=== PATIENT | male | born 1950 | race Caucasian/White ===

== ENCOUNTER 2020-01-11 07:40 | Outpatient (CLI) | payer BC, SELFPAY ==
--- NOTE | ~2020-01-11 | CT_ITS ---
EXAMINATION: CT abdomen pelvis w con DATE: 01/11/2020 08:29 INDICATION: Persistent right lower quadrant and inguinal pain TECHNIQUE: Computed tomography (CT) of the abdomen and pelvis was performed with 100 cc Omnipaque 350 intravenous contrast. The dose-length product was 500.24 mGy-cm. Automated exposure control and iter ative reconstruction technique were employed COMPARISON: CT dated 05/05/2019 FINDINGS: Lung bases are unremarkable. Heart size normal. No significant pleural or pericardial effus ion. Small hiatal hernia. There is a 3.3 cm liver cyst. There are smaller subcentimeter hypodensities of the liver also likely cysts. The pancreas, adrenal glands and kidneys are unremarkable. No significant hydronephrosis. Nono bstructive bowel gas pattern. Normal appendix. Colonic diverticulosis without evidence for diverticul itis. No abnormal lymphadenopathy. Mild atherosclerosis. No free air or free fluid. No osteolytic or osteoblastic lesions. No acute osseous abnormality. IMPRESSION: 1. No acute abdominal abnormality. Reviewed, dictated and finalized at location A.
[2020-01-11 08:20] LABS: Estimated Glomerular Filt Rate 55
== END 2020-01-11 07:41 | disposition home or self-care (01) ==
PROVIDERS: PCP Family Medicine Adolescent Medicine; Visit Provider Family Medicine Adolescent Medicine
DX: R10.31 Right lower quadrant pain (principal)
CPT/HCPCS: 36415; 74177; Q9967

== ENCOUNTER 2020-11-17 03:08 | Emergency (ER) | payer BC, SELFPAY ==
[2020-11-17 03:12] VITALS: BP 167/97; PULSE 80; RESP 16; TEMP 36.9; O2SAT 100
[2020-11-17] MEDS: TETANUS,DIPHTHERIA,AC PERTUSSIS ADULT (0.5 ML) BOOSTRIX IM (03:31)
[2020-11-17] MEDS: AMOXICILLIN 500 MG CAPSULE 2000 MG PO (03:54)
--- NOTE | 2020-11-17 03:56 | ED.GENADULT ---
HPI - General Adult General Chief complaint: Fall Stated complaint: chin laceration Time Seen by Provider: 11/17/20 03:12 History of Present Illness HPI narrative: Patient is a 69-year-old male who presents the ER with laceration to his chin. Was getting a bed use restroom when he tripped on his feet and knocked his chin on a dresser. No loss of consciousness. No change in vision or hearing. No numbness or tingling. Has laceration to the underside of his chin that is 3 cm in length. Last tetanus shot 9 to 10 years ago. 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 Reports he gets amoxicillin for dental procedures. No dental injury. Related Data Home Medications Medication Instructions Recorded Confirmed aspirin 81 mg chewable tablet 81 mg PO DAILY 07/17/20 esomeprazole magnesium 40 mg 40 mg PO DAILY 07/17/20 capsule,delayed release lisinopril 10 mg tablet 10 mg PO DAILY 07/17/20 meclizine 25 mg tablet 25 mg PO TID 07/17/20 metoprolol succinate 25 mg 25 mg PO DAILY 07/17/20 tablet,extended release 24 hr milnacipran 25 mg tablet 25 mg PO BID 07/17/20 nisoldipine 17 mg tablet,extended 17 mg PO DAILY 07/17/20 release 24 hr Allergies Allergy/AdvReac Type Severity Reaction Status Date / Time clarithromycin AdvReac Unknown DIZZINESS Verified 05/10/19 10:01 AND MUSCLE WEAKNESS Review of Systems Integumentary/Breasts: Comments: Laceration to the chin and abrasion to the left arm. Neurologic: Denies dizziness, Denies syncope, Denies headache(s), Denies focal weakness and Denies numbness PMFSH Past Medical History Medical History (Updated 11/17/20 @ 04:04 by Kenji Amanda MD) Endocarditis GERD (gastroesophageal reflux disease) Hypertension Surgical History Surgical History (Updated 11/17/20 @ 04:01 by Kenji Amanda MD) Aortic valve replaced H/O aortic aneurysm repair Social History Social History Smoking status: Former smoker Exam Narrative: Exam Narrative: GENERAL: Well-appearing, well-nourished, and in no acute distress. HEAD: Normocephalic, atraumatic. ENT: Mucous membranes moist. No dental injury. Small contusion to the left lower lip laterally from biting it. 3 cm laceration that is deep to the underside of the chin. NECK: No midline tenderness of the cervical spine. SKIN: Warm, dry, no rash. Contusion abrasion left biceps region. NEURO: Alert and oriented x3. Course Course Emergency Course: Patient given tetanus shot and prophylactic antibiotics. Wound repaired. Patient got dizzy when going from laying to sitting. He has been given serum rest and some water. Discharge home. Vital Signs Vital signs: Vital Signs Temperature 98.4 F 11/17/20 03:12 Pulse Rate 80 11/17/20 03:12 Respiratory Rate 16 11/17/20 03:12 Blood Pressure 167/97 H 11/17/20 03:12 Pulse Oximetry 100 11/17/20 03:12 Temperature 98.4 F 11/17/20 03:12 Pulse Rate 87 11/17/20 04:00 Respiratory Rate 16 11/17/20 04:00 Blood Pressure 157/84 H 11/17/20 04:00 Pulse Oximetry 100 11/17/20 04:00 Procedures Laceration Laceration 1: Date: 11/17/20 Time: 03:56 Site: face Size (cm): 3 Description: linear and clean Depth: simple, single layer (deep subcutaneous involvement) Local Anesthetic: lidocaine 1% and with epi Amount of anesthesia used (mL): 4 Pre-repair: wound explored and irrigated ====== Skin Level ====== Skin layer closed with: prolene Size (cm): 5-0 Number of sutures: 6 Technique: simple, interrupted ====== Subcutaneous Layer ====== Subcutaneous layer closed with: vicryl Size: 4-0 Number of sutures: 2 Technique: simple, interrupted ====== Muscle Layer ====== ====== Tendon Layer ====== Medical Decision Making Vital Signs Vital Signs: Vital Signs Temperature
[2020-11-17 04:00] VITALS: BP 157/84; PULSE 87; RESP 16; O2SAT 100
--- NOTE | 2020-11-17 04:01 | PC.NURSE ---
2x2 dressing applied to chin and taped, left upper arm abrasion cleaned and dressed. pt carmen well
== END 2020-11-17 05:29 | disposition home or self-care (01) ==
PROVIDERS: Emergency Provider Emergency Medicine; PCP Family Medicine Adolescent Medicine
DX: S01.81XA Laceration without foreign body of other part of head, initial encounter (principal); K21.9 Gastro-esophageal reflux disease without esophagitis; I10 Essential (primary) hypertension; I38 Endocarditis, valve unspecified; Z23 Encounter for immunization; Z95.2 Presence of prosthetic heart valve; Z79.82 Long term (current) use of aspirin; W01.190A Fall on same level from slipping, tripping and stumbling with subsequent striking against furniture, initial encounter
CPT/HCPCS: 12052; 90471; 90715; 99283; A9270

== ENCOUNTER → 2021-06-23 15:36 | Outpatient (CLI) | payer BC, SELFPAY ==
--- NOTE | ~2021-06-23 | US_ITS ---
EXAMINATION: US thyroid DATE: 06/23/2021 15:53 INDICATION: Left thyroid nodule. TECHNIQUE: Multiple ultrasound images of the thyroid were obtained. COMPARISON: None. FINDINGS: The right thyroid lobe measures 6.0 x 1.9 x 1.6 cm. The left thyroid lobe measures 6.1 x 2.5 x 2.3 c m. In the left thyroid lobe, there is a 3.6 cm solid, hypoechoic, tgijh-soyc-srtu nodule with smooth margin without echogenic foci (TI-RADS TR4). In the right thyroid lobe, there is a 1.5 cm solid, hyp oechoic, snrva-rmnd-llpt nodule with smooth margin without echogenic foci (TR4). In the right thyroid lobe, there is a 6 mm solid, hypoechoic, ifyjb-wsgn-voon nodule with smooth margin without echogenic foci (TR4). IMPRESSION: 1. Multinodular goiter. Ultrasound-guided fine-needle aspiration of 2 nodules is recommended. Reviewed, dictated and finalized at location A. IMPRESSION: 1. Multinodular goiter. Ultrasound-guided fine-needle aspiration of 2 nodules i s recommended.
== END ==
PROVIDERS: PCP Family Medicine Adolescent Medicine; Visit Provider Family Medicine Adolescent Medicine
DX: R91.8 Other nonspecific abnormal finding of lung field (principal); E04.2 Nontoxic multinodular goiter
CPT/HCPCS: 76536

== ENCOUNTER 2021-07-01 12:37 | Outpatient (CLI) | payer BC, SELFPAY ==
--- NOTE | ~2021-07-01 | US_ITS ---
EXAMINATION: 1. US FNA w image guidance 2. US FNA additional DATE: 07/01/2021 14:26 INDICATION: Multinodular goiter. TECHNIQUE: The procedure and its benefits and risks were discussed with the patient. Risks specifically discusse d included bleeding. The patient verbalized understanding of the risks and agreed to proceed. The nec k was prepped and draped in the usual sterile manner. 1% lidocaine was used for local anesthesia. 5 passes were made with a 25G needle into the lesion in right thyroid lobe under ultrasound guidance. 5 passes were made with a 25-gauge needle into the lesion in left thyroid lobe under ultrasound rita nce. There were no immediate complications. The patient understood to call the ordering physician for results after a week and a half and verbalized that understanding. FINDINGS: Grayscale ultrasound images demonstrate needles advanced into a 15 mm nodule in right thyroid lobe fo r biopsy. Grayscale ultrasound images demonstrate needles advanced into a 3.6 cm nodule in left thyro id lobe. IMPRESSION: 1. Ultrasound-guided fine needle aspiration of a right thyroid nodule. 2. Ultrasound-guided fine-needle aspiration of a left thyroid nodule. Reviewed, dictated and finalized at location A. IMPRESSION: 1. Ultrasound-guided fine needle aspiration of a right thyroid nodule. 2. Ultrasound-guided fine-needle aspiration of a left thyroid nodule.
== END 2021-07-01 12:38 | disposition home or self-care (01) ==
PROVIDERS: PCP Family Medicine Adolescent Medicine; Visit Provider Family Medicine Adolescent Medicine
DX: E04.1 Nontoxic single thyroid nodule (principal)
CPT/HCPCS: 10005; 10006; 88173; 88305

== ENCOUNTER 2022-09-01 12:24 | Outpatient (CLI) | payer MEDICARE, SELFPAY ==
--- NOTE | ~2022-09-01 | US_ITS ---
Thyroid ultrasound. Clinical History: Left thyroid lobe nodule COMPARISON: 06/23/2021 Findings: Real-time sonography of the thyroid gland was performed. The right lobe measures 4.9 x 1.8 x 1.8 cm. The left lobe measures 5.4 x 2.5 x 2.6 cm. The isthmus is 3 mm in AP diameter. Right midpole mixed solid and cystic lesion measures 1.5 x 1.1 x 1.1 cm. Solid left thyroid lobe nodu le extending towards the isthmus measures 3.3 x 2.0 x 4.0 cm in size. Impression: Bilateral thyroid lobe nodules are probably without significant change given differences in imaging t echnique. The right-sided nodule demonstrates increased cystic components as compared to prior exam.. Reviewed, dictated and finalized at [facility]. [employer] CAT[employer]LL[employer] SP[employer]ER Impression: Bilateral thyroid lobe nodules are probably without significant change given di fferences in imaging technique. The right-sided nodule demonstrates increased c ystic components as compared to prior exam..
== END 2022-09-01 12:25 | disposition home or self-care (01) ==
PROVIDERS: PCP Family Medicine Adolescent Medicine; Visit Provider Family Medicine Adolescent Medicine
DX: E04.1 Nontoxic single thyroid nodule (principal)
CPT/HCPCS: 76536

== ENCOUNTER 2023-11-07 14:09 | Outpatient (CLI) | payer MEDICARE, SELFPAY ==
--- NOTE | ~2023-11-07 | CT_ITS ---
EXAMINATION: CT chest high resolution wo dc DATE: 11/07/2023 14:24 INDICATION: Solitary pulmonary nodule TECHNIQUE: Computed tomography (CT) of the chest was performed without intravenous contrast. The dose -length product (DLP) was 350.61 mGy-cm. Automated exposure control and iterative reconstruction tech nique were employed. COMPARISON: None FINDINGS: No suspicious left lower lobe nodule is identified. There is a 2 mm nodule of the right raheel g apex. There is mild dependent atelectasis. No pleural effusion or pneumothorax. Multinodular goiter is noted. There is bilateral gynecomastia. Changes of aortic valve surgery are noted. No pathologica lly enlarged thoracic lymph nodes are identified. The heart size is normal. There is moderate thoraci c spondylosis. IMPRESSION: 1. No suspicious left lower lobe lung nodule identified. Reviewed, dictated and finalized at location L. ET ASSEMBLY PRESS OPERATOR
--- NOTE | ~2023-11-07 | US_ITS ---
EXAMINATION: US thyroid DATE: 11/07/2023 14:39 INDICATION: Thyroid nodule. TECHNIQUE: Multiple ultrasound images of the thyroid were obtained. COMPARISON: Ultrasound 09/01/2022, 07/01/21 FINDINGS: The right thyroid lobe measures 5.5 x 2.1 x 1.6 cm. The left thyroid lobe measures 5.5 x 2.7 x 1.5 c m. In the right thyroid lobe, there is a 16 mm mixed cystic and solid, isoechoic, wider than tall no dule with smooth margin without echogenic foci (TI-RADS TR2), stable from 07/01/2021 when biopsy was benign. In the right thyroid lobe, there is a 4 mm nodule. In the left thyroid lobe, there is a 3.8 c m solid, hypoechoic, wider than tall nodule with smooth margin without echogenic foci (TR4), stable f rom 07/01/2021 when biopsy was benign. IMPRESSION: 1. Multinodular goiter, likely not clinically significant. No follow-up is needed. Reviewed, dictated and finalized at location A. IAN LANGUAGE PROFESSOR IMPRESSION: 1. Multinodular goiter, likely not clinically significant. No follow-up is need ed.
== END 2023-11-07 14:10 ==
LOC: MICIMG 14:10
PROVIDERS: PCP Family Medicine Adolescent Medicine; Visit Provider Family Medicine Adolescent Medicine
DX: R91.1 Solitary pulmonary nodule (principal); E04.2 Nontoxic multinodular goiter
CPT/HCPCS: 71250; 76536

== ENCOUNTER 2023-11-10 06:39 | Day surgery (SDC) | payer MEDICARE, SELFPAY ==
[2023-10-26 10:14] VITALS: BMI 24.4
[2023-10-28 09:30] VITALS: BMI 24.2
[2023-11-10 08:14] VITALS: BP 129/89; PULSE 73; RESP 14; TEMP 36.6; O2SAT 100; BMI 24.7
[2023-11-10] MEDS: LACTATED RINGERS 1,000 ML 150 ML IV CONT (08:18)
--- NOTE | 2023-11-10 08:30 | WPDANESEPPF ---
Anes - Initial Pre Proc Eval Procedure: Operation Date: 11/10/23 09:00 Proposed Procedures p Colonoscopy - Bret Mallory MD Date/Time: 11/10/23 08:30 Surgeon: Bret Mallory MD Pre Op Diagnosis: Family history of colon cancer Patient Data Age: 72 Gender: M Height: 1.83 m Weight: 82.8 kg Last Vital Signs Temp 36.6 C 11/10/23 08:14 Pulse 73 11/10/23 08:14 Resp 14 11/10/23 08:14 BP 129/89 11/10/23 08:14 Pulse Ox 100 11/10/23 08:14 O2 Del Method Room Air 11/10/23 08:14 Allergies Allergy/AdvReac Type Severity Reaction Status Date / Time clarithromycin AdvReac Unknown DIZZINESS Verified 11/10/23 08:12 AND MUSCLE WEAKNESS Home Medications Medication Instructions Recorded Confirmed Type aspirin 81 mg chewable tablet 81 mg PO BID 08/13/22 11/10/23 History tadalafil 20 mg tablet 20 mg PO DAILY PRN sexual activity 08/30/22 11/10/23 Rx #20 tabs esomeprazole magnesium 40 mg 40 mg PO BID #180 caps 06/01/23 11/10/23 Rx capsule,delayed release metoprolol succinate 25 mg 12.5 mg PO BID #90 tabs 06/01/23 11/10/23 Rx tablet,extended release 24 hr nisoldipine 17 mg tablet,extended 17 mg PO DAILY #90 tabs 06/01/23 11/10/23 Rx release 24 hr milnacipran 25 mg tablet (Savella) 25 mg PO BID #180 tabs 06/10/23 11/10/23 Rx valacyclovir 500 mg tablet 500 mg PO DAILY #90 tabs 08/29/23 11/10/23 Rx losartan 50 mg tablet 50 mg PO DAILY #90 tabs 10/26/23 11/10/23 Rx Patient hx anesthesia problems: other (urinary retention) Family hx anesthesia problems: none Results Review: All pre-operative results and documents have been reviewed as part of the pre-operative evaluation. [facility] Past Medical History Medical History Endocarditis GERD (gastroesophageal reflux disease) Hypertension Surgical History Surgical History Aortic valve replaced x2 H/O aortic aneurysm repair History of shoulder surgery left rotator cuff History of total knee replacement (04/2019) Bilateral Social History Social History Smoking status: Light tobacco smoker Tobacco type: cigars Alcohol intake: former Substance use: never Substance use type: does not use Do You Feel Safe in your Home?: Yes Lack of Transportation: No Lack of Food: Never True Current Housing: I Have Housing Concerned About Future Housing: No Difficulty Paying Gas/Electric Bills: No Difficulty Paying for Meds: No Currently Unemployed: No Education: Bachelor's Degree Difficulty w/ Childcare or Family Care: No Living arrangements: with family Occupation/Education: retired Gender identity (if verbalized by the patient): Male Spiritual care concerns: No Anes - Eval Final PreProcedure Day of Procedure 11/10/23 08:30 Patient weight: normal Heart: regular rate and rhythm Lungs: clear to auscultation Airway: Mallampati scale class II Neurological: alert and oriented Last oral intake: >/= 8 hours ASA classification: III Emergent: no Anesthetic plan: proceed Anesthesia type and monitoring: general GIVS and standard monitoring Results Review: All pre-operative results and documents have been reviewed as part of the pre-operative evaluation. Informed Consent: The patient's anesthetic plan and its attendant risks and benefits were discussed with the patient/family/POA. Questions were solicited and answers provided to the satisfaction of the patient/family/POA.
[2023-11-10] MEDS: AMPICILLIN 2 GM/NS 100 ML 2 GM/100 ML BAG IVPB (08:37)
--- NOTE | 2023-11-10 08:38 | PM.HPGS ---
History of Present Illness History of Present Illness Consent: Risks, benefits, and alternatives have been discussed and questions answered. Patient agrees to proceed with procedure. Chief complaint: Family history of colon cancer Narrative: Brannon Haywood is a 72 year old male presents for screening colonoscopy. Patient's current weight appetite and bowel movements are normal. Patient denies abdominal pain. He has had no bleeding. Family history is significant for 2 brothers that have had colon polyps. Review of Systems Review of Systems: Review of systems noncontributory. [facility] Past Medical History Medical History Endocarditis GERD (gastroesophageal reflux disease) Hypertension Surgical History Surgical History Aortic valve replaced x2 H/O aortic aneurysm repair History of shoulder surgery left rotator cuff History of total knee replacement (04/2019) Bilateral Social History Social History Smoking status: Light tobacco smoker Tobacco type: cigars Alcohol intake: former Substance use: never Substance use type: does not use Do You Feel Safe in your Home?: Yes Lack of Transportation: No Lack of Food: Never True Current Housing: I Have Housing Concerned About Future Housing: No Difficulty Paying Gas/Electric Bills: No Difficulty Paying for Meds: No Currently Unemployed: No Education: Bachelor's Degree Difficulty w/ Childcare or Family Care: No Living arrangements: with family Occupation/Education: retired Gender identity (if verbalized by the patient): Male Spiritual care concerns: No Meds Home Medications and Allergies Home Medications Medication Instructions Recorded Confirmed Type aspirin 81 mg chewable tablet 81 mg PO BID 08/13/22 11/10/23 History tadalafil 20 mg tablet 20 mg PO DAILY PRN sexual activity 08/30/22 11/10/23 Rx #20 tabs esomeprazole magnesium 40 mg 40 mg PO BID #180 caps 06/01/23 11/10/23 Rx capsule,delayed release metoprolol succinate 25 mg 12.5 mg PO BID #90 tabs 06/01/23 11/10/23 Rx tablet,extended release 24 hr nisoldipine 17 mg tablet,extended 17 mg PO DAILY #90 tabs 06/01/23 11/10/23 Rx release 24 hr milnacipran 25 mg tablet (Savella) 25 mg PO BID #180 tabs 06/10/23 11/10/23 Rx valacyclovir 500 mg tablet 500 mg PO DAILY #90 tabs 08/29/23 11/10/23 Rx losartan 50 mg tablet 50 mg PO DAILY #90 tabs 10/26/23 11/10/23 Rx Allergies Allergy/AdvReac Type Severity Reaction Status Date / Time clarithromycin AdvReac Unknown DIZZINESS Verified 11/10/23 08:12 AND MUSCLE WEAKNESS Vital Signs Vital Signs - 24 hr 11/10/23 08:14 Temperature 98 F Pulse Rate 73 Respiratory Rate 14 Blood Pressure 129/89 Pulse Oximetry 100 Oxygen Delivery Room Air Exam Narrative: Physical exam reveals patient to be alert. Vital signs stable. HEENT exam is unremarkable. Patient is anicteric. Lungs are clear to auscultation and percussion. His without murmur or extra sounds. Abdomen bowel sounds are present soft nontender with no organomegaly. Digital external rectal exam normal per Assessment and Plan Assessment and plan (1) Family history of colonic polyps: Code(s): Z83.719 - Family history of colon polyps, unspecified Status: Acute Assessment and Plan: 2 brothers have had colon polyps. Plan for surveillance colonoscopy at 5 year intervals
[2023-11-10] MEDS: GENTAMICIN 80MG/SOD CHL 50 ML 80 MG/50 ML BAG 100 MG IVPB (09:18)
[2023-11-10 09:39] VITALS: BP 104/71; PULSE 61; RESP 14; O2SAT 94
--- NOTE | 2023-11-10 09:42 | WPDANESPN ---
Anes - Prog Note Post-Op Date/Time: 11/10/23 09:42 Cardiovascular status: normal Respiratory status: normal Airway patency: baseline Mental status: baseline Post-Op hydration status: normal Vital Signs: Last Vital Signs Temp 36.6 C 11/10/23 08:14 Pulse 73 11/10/23 08:14 Resp 14 11/10/23 08:14 BP 129/89 11/10/23 08:14 Pulse Ox 100 11/10/23 08:14 O2 Del Method Room Air 11/10/23 08:14 Pain Score (VAS): 0 I/O: Intake & Output 11/09/23 11/10/23 11/10/23 23:59 07:59 15:59 Intake Total 400 Balance 400 Patient Feedback: Patient satisfied with anesthetic care.
[2023-11-10 09:49] VITALS: BP 91/70; PULSE 62; RESP 16; O2SAT 96
[2023-11-10 09:59] VITALS: BP 106/79; PULSE 65; RESP 15; O2SAT 98
[2023-11-10 10:09] VITALS: BP 143/86; PULSE 61; RESP 15; O2SAT 98
== END 2023-11-10 10:17 | disposition home or self-care (01) ==
PROVIDERS: PCP Family Medicine Adolescent Medicine; Visit Provider Internal Medicine Gastroenterology
PROC: 0DJD8ZZ Inspection of Lower Intestinal Tract, Via Natural or Artificial Opening Endoscopic (ICD-10-PCS; CPT 45378; principal; 2023-11-10 09:00)
DX: Z83.718 Family history of other colon polyps (principal); K64.8 Other hemorrhoids
CPT/HCPCS: G0121; G0105

== ENCOUNTER 2023-12-08 10:34 | Outpatient (CLI) | payer MEDICARE, SELFPAY ==
--- NOTE | ~2023-12-08 | CT_ITS ---
EXAMINATION: CT abdomen pelvis wo con DATE: 12/08/2023 10:56 INDICATION: Generalized abdominal pain. TECHNIQUE: Computed tomography (CT) of the abdomen and pelvis was performed without intravenous contr ast. Automated exposure control and iterative reconstruction technique were employed. The dose-length product was 727.53 mGy-cm. COMPARISON: CT abdomen and pelvis 01/11/2020 FINDINGS: The visualized portions of the lung bases demonstrate mild atelectasis. No pleural effusion . The heart size is normal. No pericardial effusion. There is a small sliding hiatal hernia. There ar e cysts in the liver measuring up to 7 mm. The gallbladder, spleen, pancreas, adrenal glands, and kid neys are normal. There is no urolithiasis. There is a right inguinal hernia containing fat. There is diverticulosis of the colon without evidence of diverticulitis. The appendix is fluid-filled and dila maria de jesus to 2.7 cm with surrounding fat stranding, consistent with appendicitis. There is calcified athero sclerosis of the aorta and many of the other arteries. There are no pathologically enlarged lymph nod es. There is no free intraperitoneal fluid. There is severe lumbar spondylosis. Lumbar levocurvature is noted. IMPRESSION: 1. Acute appendicitis. I called this result to Dr. Anthony. Reviewed, dictated and finalized at location A.
== END 2023-12-08 10:35 ==
LOC: GOSHIMG 10:36
PROVIDERS: PCP Family Medicine Adolescent Medicine; Visit Provider Family Medicine Adolescent Medicine
DX: K35.80 Unspecified acute appendicitis (principal)
CPT/HCPCS: 74176

== ENCOUNTER 2023-12-08 11:31 | Inpatient (IN) | payer MEDICARE, SELFPAY ==
[2023-12-08] VITALS (12 sets, daily range): BP systolic 109–140; BP diastolic 71–91; PULSE 75–87; RESP 16–23; TEMP 36.2–37.2; O2SAT 94–100; BMI 28.0
--- NOTE | 2023-12-08 11:41 | ED.ABDPAIN ---
HPI - Abdominal Pain General Chief Complaint: Abdominal Pain <SHELDON Rodriguez Last Filed: 12/08/23 12:40> Stated Complaint: appendicitis <SHELDON Rodriguez Last Filed: 12/08/23 12:40> Time Seen by Provider: 12/08/23 11:40 <Mely Heaton PA-C - Last Filed: 12/08/23 12:40> History of Present Illness HPI narrative: 73-year-old male with history of GERD, hyperlipidemia, hypertension presents to the emergency department for acute appendicitis. Patient reports he has had generalized abdominal pain for the past 2 weeks. States it is worse when he goes over curb while in the car. He saw his PCP and was prescribed Cipro without relief. States his PCP ordered a outpatient abdomen and pelvis CT scan today which showed acute appendicitis. Patient was contacted by his PCP and was advised to come to the ER immediately. He states the pain is all over his abdomen and worse in the lower quadrants. he reports associated nausea and decreased appetite, no emesis. denies fever, dysuria, diarrhea. Prior abdominal surgeries include a inguinal hernia repair. <SHELDON Rodriguez Last Filed: 12/08/23 12:40> Related Data Home Medications: Home Medications Medication Instructions Recorded Confirmed aspirin 81 mg chewable tablet 81 mg PO BID 08/13/22 12/08/23 <SHELDON Rodriguez Last Filed: 12/08/23 12:40> Allergies/Adverse Reactions: Allergies Allergy/AdvReac Type Severity Reaction Status Date / Time clarithromycin AdvReac Unknown DIZZINESS Verified 12/08/23 11:51 AND MUSCLE WEAKNESS <SHELDON Rodriguez Last Filed: 12/08/23 12:40> Review of Systems Review of Systems: CONSTITUTIONAL: Denies fever, chills, or sweats. EYES: Denies visual changes, redness, or discharge. ENT: Denies rhinorrhea, congestion, sore throat, or otalgia. CARDIOVASCULAR: Denies chest pain, palpitations, or edema. RESPIRATORY: Denies cough or dyspnea. GASTROINTESTINAL: See HPI GENITOURINARY: Denies dysuria or hematuria. SKIN: Denies rash or itching. MUSCULOSKELETAL: Denies back pain, joint pain, or myalgia. NEUROLOGIC: Denies headache, numbness, or weakness. PSYCHIATRIC: Denies anxiety or depression. <Mely Heaton PA-C - Last Filed: 12/08/23 12:40> [facility] Past Medical History Medical History: Medical History Endocarditis GERD (gastroesophageal reflux disease) Hypertension <Mely Heaton PA-C - Last Filed: 12/08/23 12:40> Surgical History Surgical History: Surgical History Aortic valve replaced x2 H/O aortic aneurysm repair ascending aortic aneurysm repair in 2009 History of right inguinal hernia repair Open with mesh History of shoulder surgery left rotator cuff History of total knee replacement (04/2019) Bilateral <Mely Heaton PA-C - Last Filed: 12/08/23 12:40> Social History Social History: Social History Smoking status: Current every day smoker Tobacco type: cigars Second hand tobacco smoke exposure: Yes Additional smoking assessment comments: Pt smokes 1-2 cigars/day. Alcohol intake: never Substance use: former Substance use type: marijuana Last use: 40 years ago Do You Feel Safe in your Home?: Yes Lack of Transportation: No Lack of Food: Never True Current Housing: I Have Housing Concerned About Future Housing: No Difficulty Paying Gas/Electric Bills: No Difficulty Paying for Meds: No Currently Unemployed: No Education: Bachelor's Degree Difficulty w/ Childcare or Family Care: No Living arrangements: with family Occupation/Education: retired Gender identity (if verbalized by the patient): Male Spiritual care concerns: No <Mely Heaton PA-C - Last Filed: 12/08/23 12:40> Exam Narrative:
[2023-12-08 12:07] LABS: Basophils Absolute Auto 0.1 K/mm3 (0.0-0.1); Basophils Percent Auto 0.5 % (0.2-1.2); Eosinophils Absolute Auto 0.1 K/mm3 (0-0.3); Eosinophils Percent Auto 0.4 % (0-4.4); Hematocrit 47.9 % (42.0-52.0); Hemoglobin 15.5 g/dL (14.0-18.0); Immature Granulocyte Percent A 0.6 % (0-0.5); Lymphocytes Absolute Auto 1.46 K/mm3 (0.9-3.2); Lymphocytes Percent Auto 9.5 % (18.3-44.2); Mean Corpuscular HGB Conc 32.4 g/dl (32-36); Mean Corpuscular Hemoglobin 31.4 pg (26-34); Mean Platelet Volume 9.9 fl (7.4-10.4); Monocytes Percent Auto 13.2 % (2.6-8.5); Neutrophils Absolute Auto 11.7 K/mm3 (1.3-6.7); Neutrophils Percent Auto 75.8 % (45.5-73.1); Platelet Count Result 328 k/mm3 (150-375); Red Blood Count 4.94 M/mm3 (4.6-6.20); Red Cell Distribution Width 13.5 % (11.5-14.5); White Blood Count 15.4 K/mm3 (4.5-10.0)
[2023-12-08] MEDS: SODIUM CHLORIDE 0.9% IV 1,000 ML 999 ML IV CONT (12:09)
[2023-12-08 12:13] LABS: Alanine Aminotransferase 24 U/L (6-50); Albumin Level 4.5 g/dL (3.5-5.1); Alkaline Phosphatase 92 U/L (38-126); Anion Gap 8 mmol/L (4-12); Aspartate Amino Transferase 28 U/L (17-59); Bilirubin,Total 0.8 mg/dL (0.2-1.3); Blood Urea Nitrogen 22 mg/dL (9-20); Calcium 9.9 mg/dL (8.4-10.2); Carbon Dioxide 27 mmol/L (22-30); Chloride 102 mmol/L (98-107); Estimated CRCL calculation 51 ml/min; Estimated Glomerular Filt Rate 54; Glucose 97 mg/dL (65-110); Lipase 54 U/L (23-300); Potassium 4.1 mmol/L (3.4-5.0); Sodium 137 mmol/L (137-145)
[2023-12-08 12:17] LABS: INR 1.1; Prothrombin Time 14.7 Seconds (11.1-14.7)
[2023-12-08 12:19] LABS: Partial Thromboplastin Time 38.9 Seconds (22.3-36.8)
--- NOTE | 2023-12-08 12:50 | PM.IMHP ---
H&P: HPI History of Present Illness Date/Time: 12/08/23 12:50 Chief Complaint: Abdominal pain Narrative: This is a 73-year-old man who was directed to go to the ER after findings of acute appendicitis on an outpatient CT scan. He had a colonoscopy by Dr. Mallory on 11/10/2023 with only having findings of uncomplicated internal hemorrhoids. Not long after having the colonoscopy, he began to notice some mild lower abdominal pain. He reports sharp pain across the lower abdomen, which he did not notice was worse on one side more than the other. He believes his pain started about 10 days ago. His pain remained constant and was aggravated by certain movements. He spoke with the GI doctor and then his PCP regarding this pain. His PCP prescribed him ciprofloxacin, which he began taking a few days ago. He did not notice much improvement with the antibiotic and scheduled an appointment with his PCP for evaluation today. He ordered a stat CT scan of the abdomen and pelvis. This showed acute appendicitis with no evidence of perforation or abscess. The appendix measured up to 2.7 cm with surrounding inflammatory stranding. He was called and instructed to go directly to the ER. Labs were drawn in [place] [id number] with a left shift. Our service was contacted by the ED provider. He is now seen in the ER. He denies ever having this pain in the past. Denies any fever, chills, nausea or vomiting. He has had multiple surgeries in the past and reports postoperative urinary retention after every surgery and has to have an indwelling Logan catheter for short time postop. He follows with Dr. Gan for urology and has had a TURP many years ago. Even after the TURP, he had postoperative urinary retention following his bilateral knee replacement about 5 years ago. He also reports a history of aortic stenosis with prostatic aortic valve replacement in 1996. 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 He then had an aortic aneurysm repair and they also did a second aortic valve replacement during that surgery. No other cardiac issues since that surgery. He is not on any anticoagulation. He reports having multiple echocardiograms since his surgeries and the most recent without any evidence of aortic stenosis or significant abnormalities. 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 ascending aortic aneurysm measuring over 6 cm requiring aortic aneurysm repair and another aortic valve replacement Respiratory: Respiratory: Reports no additional respiratory complaints, Denies cough and Denies dyspnea Gastrointestinal: Gastrointestinal: Reports as per HPI, Reports no additional gastrointestinal complaints, Reports abdominal pain, Denies bloating, Denies constipation, Denies diarrhea, Denies nausea and Denies vomiting Genitourinary: Genitourinary: Reports no additional male genitourinary complaints and Denies dysuria Musculoskeletal: Musculoskeletal: Reports no additional musculoskeletal complaints, Denies abnormal gait and Denies joint swelling Integumentary/Breasts: Skin/Breast: Reports system reviewed and no additional complaints, except as docu Neurologic: Reports system reviewed and no additional complaints, except as documented, Denies headache(s), Denies focal
[2023-12-08] MEDS: LACTATED RINGERS 1,000 ML 30 ML IV CONT ×2 (13:00→16:15)
[2023-12-08] MEDS: PIPERACILLN/TAZ 3.375GM/NS50ML 3.375 GM/50 ML BAG IVPB ×2 (13:26→18:59)
--- NOTE | 2023-12-08 13:56 | WPDHPUPDATE1 ---
History and Physical Update Update Date/Time: 12/08/23 13:56 History and Physical has been reviewed, including an updated exam of the patient. There are NO changes in the patient's condition. Risks, benefits, and alternatives have been discussed and questions answered. Patient agrees to proceed with procedure.
--- NOTE | 2023-12-08 14:00 | P.PNAN_ITS ---
Anes - Eval Final PreProcedure Day of Procedure 12/08/23 14:00 Patient weight: normal Heart: regular rate and rhythm Lungs: clear to auscultation Airway: Mallampati scale class II Neurological: alert and oriented Last oral intake: >/= 8 hours ASA classification: III Emergent: yes Anesthetic plan: proceed Anesthesia type and monitoring: general ETT and standard monitoring Results Review: All pre-operative results and documents have been reviewed as part of the pre- operative evaluation. Informed Consent: The patient's anesthetic plan and its attendant risks and benefits were discussed with the patient/family/POA. Questions were solicited and answers provided to the satisfaction of the patient/family/POA.
[2023-12-08] MEDS: BUPIVACAINE/EPINEPHRINE 0.5% 30 ML VIAL INFILTRATE (14:58)
--- NOTE | 2023-12-08 18:13 | ADMGEN ---
This patient, Brannon Haywood, was admitted to [facility] Surg Room 302-01. Patient/family oriented to hospital policies and general routines including ID bracelet, bed and alarms, visiting hours, pain management, procedures, bathroom and other care routines, personal items, smoking policy, room service/diet, and visiting hours. Information on how to activate the Rapid Response Team has been discussed. Patient/Family are encouraged to report perceived risks to care and to ask questions if they do not understand what they are told or what they should do.
[2023-12-08] MEDS: SODIUM CHLORIDE 0.9% IV 100 ML (18:59)
[2023-12-08] MEDS: IBUPROFEN IV 800 MG/200 ML 800 MG/200 ML BAG 400 MG IVPB ×2 (19:00→23:55)
[2023-12-08] MEDS: LACTATED RINGERS 1,000 ML 125 ML IV CONT (19:00)
[2023-12-08] MEDS: PANTOPRAZOLE 40 MG TABLET PO (20:05)
--- NOTE | 2023-12-08 21:09 | PC.NURSE ---
pt walked to BR to void, and reports that he did successfully urinate around 21:00 this evening
--- NOTE | 2023-12-08 21:11 | W.PM.PROC2 ---
Procedure Note - Detailed Date of Procedure 12/08/23 Pre-op Diagnosis Acute appendicitis Post-op Diagnosis Other (Ruptured appendicitis with abscess and generalized peritonitis) Procedure Performed Laparoscopic appendectomy Surgeon Andrew Akins MD [employer] Shraddha Fay [facility] Anesthesia General and Local Indications Patient has had persistent and worsening right lower quadrant abdominal pain for 10-14 days. Pain hurts with any movement. He saw Dr. Anthony, his primary care physician, to day and a CT scan of the abdomen and pelvis was done. This showed acute appendicitis with the appendix quite large at 2.7 cm but no evidence of abscess or perforation. Patient went to the emergency room [place] [id number]. He is taken to surgery now for laparoscopic appendectomy. Findings The appendix was ruptured and in fact disintegrated after about 3 cm from its origin. There was an abscess associated with the acute appendicitis and the appendix was retrocecal, possibly an explanation for why his pain went on as long as it did. The distal appendix was involved in a severe inflammatory mass associated with the abscess. Was very difficult to identify tissue planes but eventually the entire appendix was removed. No evidence of malignancy could be seen but with the severe inflammation and somewhat raw tissue, this is still possible. As noted the surgery was extremely difficult. A 4th port had to be placed to better expose the ruptured appendix and inflammatory mass with abscess. The proximal ascending colon had to be mobilized to visualize the distal ruptured appendix with abscess. There was at least 5 times more bleeding than usual. Blood loss was approximately 150 cc. The operation itself took nearly 2 hours with the difficult dissection, extra ports, lack of tissue planes and oozing of blood associated with the hypervascular inflammatory process. This is at least 3 times longer than usual for appendicitis. A drain had to be placed postoperatively. There were several well formed clots from the bleeding that could not readily be suctioned away and had to be placed in an Endo-Catch bag to retrieve them from the abdominal cavity. Patient has had to be admitted following the surgery for continued IV antibiotics and management of his peritonitis. Description of Procedure Patient was taken to surgery and induced into general anesthesia. The abdomen is prepped and draped. Trocars were placed in the usual fashion along the left side of the abdomen. These were applied Medical optical trocars. Local was infiltrated prior to placement of each of the trocars. Once the trocars were in place the patient was placed in Trendelenburg in the right-side was elevated. The cecum and proximal ascending colon were easily seen as they were full of air and lying in or actually across the midline of the lower abdomen. After carefully dissecting the cecum and trying to mobilize it, I was able to see the appendiceal origin and notice that the appendix was proceeding under the cecum or retrocecal and the dense inflammatory process was associated with that. I tried to lateral and distally moved this and found a fairly large abscess in this area. Dark brown purulent fluid was noted. All this was suctioned away until there was no more. I continued to try to mobilize the appendix from the retroperitoneum and further expose the inflammatory process. Visualization was not adequate and so I placed a right upper quadrant 5 mm port to assist with this. We alternated between this port and the left upper quadrant port for camera position throughout the rest of the surgery. Dissection was continued and eventually I found the proximal appendix as I was able to mobilize the cecum from the retroperitoneum. There was then some tenuous connections of the proximal appendix to the dense inflammatory mass associated with the abscess of the more distal appendix. As I tried to diss
[2023-12-08] MEDS: ARTIFICIAL TEARS OPHTH SOLN 15 ML BOTTLE 1 DROP EACH EYE (22:12)
[2023-12-08] MEDS: PROPARACAINE HCL 0.5% 15 ML OPHTH SOLN 1 DROP EACH EYE (22:12)
[2023-12-09] MEDS: PIPERACILLN/TAZ 3.375GM/NS50ML 3.375 GM/50 ML BAG IVPB ×3 (00:54→17:14)
[2023-12-09] MEDS: oxyCODONE/ACETAMINOPHEN (*CRX) 10-325 MG TABLET 1 TAB PO (01:46)
[2023-12-09] MEDS: IBUPROFEN IV 800 MG/200 ML 800 MG/200 ML BAG 400 MG IVPB ×2 (05:39→12:02)
[2023-12-09 06:00] VITALS: BP 128/80; PULSE 76; RESP 18; TEMP 36.6; O2SAT 95
[2023-12-09 07:00] LABS: Hemoglobin 12.8 g/dL (14.0-18.0); Mean Corpuscular HGB Conc 32.8 g/dl (32-36); Mean Corpuscular Hemoglobin 31.5 pg (26-34); Mean Corpuscular Volume 96.1 fl (80-100); Mean Platelet Volume 10.3 fl (7.4-10.4); Platelet Count Result 247 k/mm3 (150-375); Red Blood Count 4.06 M/mm3 (4.6-6.20); Red Cell Distribution Width 13.5 % (11.5-14.5); White Blood Count 13.3 K/mm3 (4.5-10.0)
--- NOTE | 2023-12-09 07:27 | P.PNAN_ITS ---
Anes - Prog Note Post-Op Date/Time: 12/09/23 07:27 Cardiovascular status: normal Respiratory status: normal Airway patency: baseline Mental status: baseline Post-Op hydration status: normal Vital Signs: Last Vital Signs Temp 36.6 C 12/09/23 06:00 Pulse 76 12/09/23 06:00 Resp 18 12/09/23 06:00 BP 128/80 12/09/23 06:00 Pulse Ox 95 12/09/23 06:00 O2 Del Method Room Air 12/08/23 20:00 O2 Flow Rate 8 12/08/23 17:00 Pain Score (VAS): 0 I/O: Intake & Output 12/08/23 12/08/23 12/09/23 15:59 23:59 07:59 Intake Total 50 650 700 Output Total 30 48 Balance 50 620 652 Laboratory Tests 12/09/23 05:33 12/08/23 12/09/23 11:50 05:33 WBC 15.4 H 13.3 H RBC 4.94 4.06 L Hgb 15.5 12.8 L Hct 47.9 39.0 L MCV 97.0 96.1 MCH 31.4 31.5 MCHC 32.4 32.8 RDW 13.5 13.5 Plt Count 328 247 MPV 9.9 10.3 Immature Gran % (Auto) 0.6 H Neut % (Auto) 75.8 H Lymph % (Auto) 9.5 L [place] % (Auto) 13.2 H Eos % (Auto) 0.4 Baso % (Auto) 0.5 Lymph # (Auto) 1.46 [place] # (Auto) 2.0 H Eos # (Auto) 0.1 Baso # (Auto) 0.1 Abs Immat Gran (auto) 0.10 H Absolute Neuts (auto) 11.7 H Absolute Nucleated RBC 0.000 Nucleated RBC % 0.0 PT 14.7 INR 1.1 APTT 38.9 H Sodium 137 Pending Potassium 4.1 Pending Chloride 102 Pending Carbon Dioxide 27 Pending Anion Gap 8 Pending BUN 22 H Pending Creatinine 1.30 Pending Estim Creat Clear Calc 51 Pending Estimated GFR 54 L Pending Glucose 97 Pending Calcium 9.9 Pending Total Bilirubin 0.8 AST 28 ALT 24 Alkaline Phosphatase 92 Total Protein 9.0 H Albumin 4.5 Lipase 54 Blood Type O Positive Antibody Screen Negative Post-procedural complaints: none Patient Feedback: Patient satisfied with anesthetic care.
[2023-12-09 07:34] LABS: Anion Gap 7 mmol/L (4-12); Blood Urea Nitrogen 15 mg/dL (9-20); Calcium 8.8 mg/dL (8.4-10.2); Carbon Dioxide 24 mmol/L (22-30); Chloride 105 mmol/L (98-107); Estimated CRCL calculation 66 ml/min; Estimated Glomerular Filt Rate > 60; Glucose 132 mg/dL (65-110); Potassium 3.9 mmol/L (3.4-5.0); Sodium 136 mmol/L (137-145)
--- NOTE | 2023-12-09 10:01 | PC.NURSE ---
Addendum entered by Mckenzie Marc RN 12/09/23 18:38: Pt has been up and ambulating the halls. Pt is A&O4. Pt participates and contributes in plan of care. Pt diet was advanced and pt is tolerating well. Pt has been monitored for any changes in status. Will continue to monitor pt. Original Note: Pt is A&O 4 male who participates and contributes in plan of care. Pt took home medication this morning. Pt educated that he is not supposed to take home medication and to wait until medication is brought in by staff. Pt agreeable. Will continue to monitor pt.
[2023-12-09 14:00] VITALS: BP 103/68; PULSE 73; RESP 16; TEMP 36.5; O2SAT 94
--- NOTE | 2023-12-09 15:13 | PM.PNGS ---
Progress Note: A&P Assessment and Plan (1) Acute appendicitis with generalized peritonitis and gangrene: Qualifiers: Appendicitis perforation presence: with perforation Appendicitis abscess presence: with abscess Qualified Code(s): K35.211 - Acute appendicitis with generalized peritonitis, with perforation and abscess Code(s): K35.209 - Acute appendicitis with generalized peritonitis, without abscess, unspecified as to perforation; K35.891 - Other acute appendicitis without perforation, with gangrene Status: Acute Assessment and Plan: Doing well postop day 1. Will advance to soft diet and increased ambulation. Recheck labs and exam again in the morning. Advised that he will probably be here until at least Tuesday. No signs of adynamic ileus. Continue IV antibiotics for ruptured appendicitis with abscess gangrene and generalized peritonitis Subjective Subjective Date/Time Seen: 12/09/23 15:13 Post Op day: 1 Patient reports: feels better, pain is less, tolerating liquids well, flatus, no bowel movement and afebrile Exam Const: General: comfortable and no acute distress Orientation/consciousness: patient oriented x3 GI: Inspection: non-distended, incision (Dry and healing, PAMELA serosanguineous) and scaphoid GI Palp: Yes Soft to palpation, Yes Tenderness to palpation present (GI) (Less than expected), No Guarding due to palpation present (GI) and No Rebound tenderness present Neuro: General: patient oriented x3 and no focal motor deficits Extrem: General: no calf tenderness and no edema Psych: Affect: normal affect Insight: Good insight present (Psych) Judgement: Good judgement present (Psych) Objective Data Vital Signs Vital Signs: Vital Signs - 24 hr 12/08/23 16:15 12/08/23 16:30 12/08/23 16:45 Temperature 36.4 C Pulse Rate 77 76 77 Respiratory Rate 16 18 18 Blood Pressure 109/91 H 127/71 140/78 Pulse Oximetry 98 100 100 Oxygen Delivery Simple Face Mask Simple Face Mask Simple Face Mask Oxygen Flow Rate 8 8 8 12/08/23 17:00 12/08/23 17:15 12/08/23 17:30 Temperature Pulse Rate 75 78 77 Respiratory Rate 16 19 20 Blood Pressure 138/84 131/83 135/83 Pulse Oximetry 100 97 94 Oxygen Delivery Simple Face Mask Room Air Room Air Oxygen Flow Rate 8 12/08/23 17:45 12/08/23 18:57 12/08/23 22:43 Temperature 37.1 C 36.2 C L Pulse Rate 79 80 85 Respiratory Rate 19 18 18 Blood Pressure 132/83 140/86 126/85 Pulse Oximetry 95 95 96 Oxygen Delivery Room Air Oxygen Flow Rate 12/08/23 20:00 12/09/23 06:00 12/09/23 09:47 Temperature 36.6 C Pulse Rate 76 Respiratory Rate 18 Blood Pressure 128/80 Pulse Oximetry 95 Oxygen Delivery Room Air Room Air Oxygen Flow Rate 12/09/23 14:00 Temperature 36.5 C Pulse Rate 73 Respiratory Rate 16 Blood Pressure 103/68 Pulse Oximetry 94 Oxygen Delivery Oxygen Flow Rate Intake/Output Intake/Output: Intake & Output 12/06/23 12/07/23 12/08/23 12/09/23 23:59 23:59 23:59 23:59 Intake Total 700 1300 Output Total 30 73 Balance 670 1227 Meds/Results Medications: Active Medications Generic Name Dose Route Start Last Admin Trade Name Freq PRN Reason Stop Dose Admin Acetaminophen 500 mg 12/08/23 17:52 Acetaminophen 500 Mg Tablet PO Q6H PRN Mild Pain (1-3) or Fever Artificial Tears 1 drop 12/08/23 21:55 12/08/23 22:12 Artificial Tears Ophth Soln 15 Ml Bottle EACH EYE 1 drop Q2H PRN Administration Dry Eye(s) Enoxaparin Sodium 40 mg 12/09/23 09:00 12/09/23 12:25 Enoxaparin 40 Mg/0.4 Ml Syringe SUB-Q Not Given DAILY XU Lactated Ringer's 1,000 mls @ 80 mls/hr 12/08/23 17:52 12/08/23 19:00 Lr - Lactated Ringers Iv IV CONT 125 mls/hr .[id number] XU Administration Piperacillin/Tazobactam/Dextrose 3.375 gm in 50 mls @ 100 mls/hr 12/08/23 18:00 12/09/23 12:02 Zosyn 3.375 Gm/Ns 50 Ml IVPB 100 mls/hr Q6HR XU Administration Ibuprof
[2023-12-09 15:19] VITALS: BP 107/66; PULSE 74; RESP 18; TEMP 36.1; O2SAT 97
[2023-12-09 17:14] VITALS: PULSE 76
[2023-12-09] MEDS: METOPROLOL SUCCINATE EXT REL 12.5 MG TABCR PO (17:14)
[2023-12-09] MEDS: PANTOPRAZOLE 40 MG TABLET PO (21:06)
[2023-12-09] MEDS: ACETAMINOPHEN 500 MG TABLET PO (21:09)
[2023-12-09 21:44] VITALS: BP 106/67; PULSE 74; RESP 20; TEMP 36.8; O2SAT 97
[2023-12-10] VITALS (7 sets, daily range): BP systolic 126–135; BP diastolic 60–82; PULSE 75–82; RESP 16–18; TEMP 36.4–36.7; O2SAT 95–98
[2023-12-10] MEDS: PIPERACILLN/TAZ 3.375GM/NS50ML 3.375 GM/50 ML BAG IVPB ×4 (00:30→17:04)
[2023-12-10] MEDS: oxyCODONE/ACETAMINOPHEN (*CRX) 5-325 MG TABLET 1 TABLET PO ×3 (06:07→20:58)
[2023-12-10 07:03] LABS: Hematocrit 37.7 % (42.0-52.0); Hemoglobin 12.2 g/dL (14.0-18.0); Mean Corpuscular HGB Conc 32.4 g/dl (32-36); Mean Corpuscular Hemoglobin 31.9 pg (26-34); Mean Corpuscular Volume 98.4 fl (80-100); Mean Platelet Volume 10.1 fl (7.4-10.4); Platelet Count Result 247 k/mm3 (150-375); Red Blood Count 3.83 M/mm3 (4.6-6.20); Red Cell Distribution Width 13.2 % (11.5-14.5); White Blood Count 9.9 K/mm3 (4.5-10.0)
[2023-12-10 07:18] LABS: Anion Gap 6 mmol/L (4-12); Blood Urea Nitrogen 14 mg/dL (9-20); Calcium 8.7 mg/dL (8.4-10.2); Carbon Dioxide 24 mmol/L (22-30); Chloride 107 mmol/L (98-107); Estimated CRCL calculation 66 ml/min; Estimated Glomerular Filt Rate > 60; Glucose 96 mg/dL (65-110); Potassium 3.7 mmol/L (3.4-5.0); Sodium 137 mmol/L (137-145)
[2023-12-10] MEDS: LOSARTAN POTASSIUM 50 MG TABLET PO (09:24)
[2023-12-10] MEDS: METOPROLOL SUCCINATE EXT REL 12.5 MG TABCR PO ×2 (09:24→17:04)
[2023-12-10] MEDS: PSYLLIUM POWDER PACKET 1 PACKET PO (09:26)
[2023-12-10] MEDS: valACYclovir HCL 500 MG TABLET PO (09:26)
[2023-12-10] MEDS: PANTOPRAZOLE 40 MG TABLET PO ×2 (09:27→20:58)
--- NOTE | 2023-12-10 15:20 | PM.PNGS ---
Progress Note: A&P Assessment and Plan (1) Acute appendicitis with generalized peritonitis and gangrene: Qualifiers: Appendicitis perforation presence: with perforation Appendicitis abscess presence: with abscess Qualified Code(s): K35.211 - Acute appendicitis with generalized peritonitis, with perforation and abscess Code(s): K35.209 - Acute appendicitis with generalized peritonitis, without abscess, unspecified as to perforation; K35.891 - Other acute appendicitis without perforation, with gangrene Status: Acute Assessment and Plan: Improving. White blood cell count now down to normal range. No evidence of purulent drainage in PAMELA drain. Although reportedly having quite a bit of abdominal pain, patient also tells me that he walked in the halls 5 times yesterday with his . No fevers and eating well. Will advance diet to regular. Discussed expectations, particularly postoperative pain and its management. (2) H/O aortic aneurysm repair: Code(s): Z98.890 - Other specified postprocedural states; Z86.79 - Personal history of other diseases of the circulatory system Status: Chronic (3) Aortic valve prosthesis present: Code(s): Z95.2 - Presence of prosthetic heart valve Status: Chronic (4) Gastro-esophageal reflux disease without esophagitis: Code(s): K21.9 - Gastro-esophageal reflux disease without esophagitis Status: Chronic Assessment and Plan: Continues on proton pump inhibitors twice a day Subjective Subjective Date/Time Seen: 12/10/23 15:20 Post Op day: 2 Patient reports: still having pain, bowel movement and afebrile Interval history: Had pain almost all night. Told nurse his pain level was 12. Offered morphine sulfate but did not take because he does not like morphine. Pain started around 7:00 p.m. and eventually patient did take Percocet about 5:00 a.m. and this greatly improved his pain. Reports he is still having pain but afraid to take pain medicine as this may delay the return of his bowel function or cause constipation. Did have a bowel movement yesterday. Exam Const: General: cooperative, healthy appearing, comfortable, no acute distress, alert, awake and well nourished Nutritional Appearance: average body habitus Orientation/consciousness: patient oriented x3 and No confusion GI: Inspection: non-distended, incision (Dry, healing) and other (Serosanguineous fluid in PAMELA drain) GI Palp: Yes Soft to palpation, Yes Tenderness to palpation present (GI) (Mild diffuse tenderness, worse in right lower quadrant), Yes Guarding due to palpation present (GI) and No Palpable mass present Auscultation: normal bowel sounds Psych: Speech and movement: Clear speech present Affect: normal affect Attitude: cooperative Insight: Fair insight present (Psych) Judgement: Fair judgement present (Psych) Objective Data Vital Signs Vital Signs: Vital Signs - 24 hr 12/09/23 17:14 12/09/23 21:44 12/09/23 20:00 Temperature 36.8 C Pulse Rate 76 74 Respiratory Rate 20 Blood Pressure 106/67 Pulse Oximetry 97 Oxygen Delivery Room Air 12/10/23 06:00 12/10/23 09:24 12/10/23 10:31 Temperature 36.4 C Pulse Rate 76 82 Respiratory Rate 18 Blood Pressure 135/60 Pulse Oximetry 96 95 Oxygen Delivery Room Air 12/10/23 09:20 12/10/23 09:02 Temperature 36.5 C Pulse Rate 82 Respiratory Rate 18 Blood Pressure 126/76 Pulse Oximetry 97 Oxygen Delivery Room Air Intake/Output Intake/Output: Intake & Output 12/07/23 12/08/23 12/09/23 12/10/23 23:59 23:59 23:59 23:59 Intake Total 700 2262 1100 Output Total 30 93 20 Balance 670 2169 1080 Meds/Results Medications: Active Medications Generic Name Dose Route Start Last Admin Trade Name Freq PRN Reason Stop Dose Admin Acetaminophen 500 mg 12/08/23 17:52 12/09/23 21:09 Acetaminophen 500 Mg Tablet PO 500 mg Q6H PRN Administration Mild Pain (1-3) or
[2023-12-10] MEDS: SENNA/DOCUSATE SODIUM TABLET 1 TAB PO (20:58)
[2023-12-11] MEDS: PIPERACILLN/TAZ 3.375GM/NS50ML 3.375 GM/50 ML BAG IVPB ×2 (00:30→05:13)
[2023-12-11 05:06] VITALS: BP 128/77; PULSE 71; RESP 18; TEMP 36.6; O2SAT 98
[2023-12-11 07:04] LABS: Hematocrit 40.7 % (42.0-52.0); Hemoglobin 12.8 g/dL (14.0-18.0); Mean Corpuscular HGB Conc 31.4 g/dl (32-36); Mean Corpuscular Hemoglobin 30.7 pg (26-34); Mean Corpuscular Volume 97.6 fl (80-100); Mean Platelet Volume 9.6 fl (7.4-10.4); Platelet Count Result 292 k/mm3 (150-375); Red Blood Count 4.17 M/mm3 (4.6-6.20)
[2023-12-11 07:18] LABS: Anion Gap 8 mmol/L (4-12); Blood Urea Nitrogen 14 mg/dL (9-20); Calcium 9.4 mg/dL (8.4-10.2); Carbon Dioxide 26 mmol/L (22-30); Chloride 105 mmol/L (98-107); Estimated CRCL calculation 66 ml/min; Estimated Glomerular Filt Rate > 60; Glucose 96 mg/dL (65-110); Potassium 3.6 mmol/L (3.4-5.0); Sodium 139 mmol/L (137-145)
[2023-12-11 09:10] VITALS: BP 129/86; PULSE 79; RESP 18; TEMP 36.6; O2SAT 95
[2023-12-11 09:12] VITALS: PULSE 79
[2023-12-11] MEDS: METOPROLOL SUCCINATE EXT REL 12.5 MG TABCR PO (09:12)
[2023-12-11] MEDS: LOSARTAN POTASSIUM 50 MG TABLET PO (09:12)
[2023-12-11] MEDS: PANTOPRAZOLE 40 MG TABLET PO (09:13)
[2023-12-11] MEDS: valACYclovir HCL 500 MG TABLET PO (09:13)
--- NOTE | 2023-12-11 09:32 | PM.DS ---
DS: Admitting Diagnosis Discharge Date 12/11/2023 Admitting Diagnosis ACUTE APPENDICITIS Aortic valve prosthesis History thoracic aortic aneurysm Essential hypertension Fibromyalgia Gastroesophageal reflux disease DS: Discharge Diagnosis Discharge Diagnosis (1) Acute appendicitis with generalized peritonitis and gangrene: Qualifiers: Appendicitis abscess presence: with abscess Appendicitis perforation presence: with perforation Qualified Code(s): K35.211 - Acute appendicitis with generalized peritonitis, with perforation and abscess Code(s): K35.209 - Acute appendicitis with generalized peritonitis, without abscess, unspecified as to perforation; K35.891 - Other acute appendicitis without perforation, with gangrene Status: Acute (2) Aortic valve prosthesis present: Code(s): Z95.2 - Presence of prosthetic heart valve Status: Chronic (3) H/O aortic aneurysm repair: Code(s): Z98.890 - Other specified postprocedural states; Z86.79 - Personal history of other diseases of the circulatory system Status: Chronic (4) Gastro-esophageal reflux disease without esophagitis: Code(s): K21.9 - Gastro-esophageal reflux disease without esophagitis Status: Chronic (5) Fibromyalgia: Code(s): M79.7 - Fibromyalgia Status: Acute (6) Essential (primary) hypertension: Code(s): I10 - Essential (primary) hypertension Status: Acute DS: Summary Hospital Course Hospital Course: Patient presented to the emergency room on December 07 after having had an outpatient CT scan showing acute appendicitis. Although the appendix was quite large at 2.7 cm, there was no evidence on CT scan of abscess or ruptured appendix. At surgery on 12/08/2023, he actually did have a ruptured appendix. It appeared that it had been ruptured for a few days. The appendix was retrocecal and likely this is the reason he had not presented earlier. The appendix was somewhat normal size over the 1st 3-4 cm. It had ruptured in its midportion and was nearly disconnected from the proximal appendix. There was an abscess and a very hard inflammatory mass associated with the distal appendix. The appendix was removed with laparoscopic appendectomy. The proximal appendix was sent in 1 specimen, the distal appendix and inflammatory mass were sent in another. Pathology is not yet returned. Following surgery, the patient did well. He was having quite a bit of pain on postoperative day 1. He had a right lower quadrant Brandin-Enrique drain which drained serosanguineous fluid during his hospitalization. He was never febrile and was not tachycardic after surgery. His white blood cell count decreased to normal 2 days after surgery. His diet was slowly advanced. He had a bowel movement on postop day 2. His drain was removed on the day of discharge 12/11/2023. He was tolerating solid food and able to ambulate with minimal discomfort. He is discharged now on postop day 3., 12/11/2023. He was on Zosyn antibiotics while in the hospital and will go home with another 4 days of Augmentin. Status at Discharge Overall status at discharge: patient is progressing back to baseline Time Spent with Patient Time attestation: Total time spent providing and/or coordinating discharge services: Time spent: Less than 30 minutes Exam Const: General: comfortable, no acute distress, alert and awake Orientation/consciousness: No confusion GI: Inspection: non-distended and incision (Healing well, serosanguineous PAMELA fluid) GI Palp: Yes Soft to palpation and Yes Tenderness to palpation present (GI) (Minimal tenderness, mostly around drain site) Auscultation: normal bowel sounds DS: Data Data Completed and Pending Pending studies at discharge: Pending at discharge 12/08/23 14:49 Surgical [PTH] Routine 12/08/23 15:28 Surgical [PTH] Routine Surgical [PTH] Routine Labs on day of discharge: Labs from last 24 hours
[2023-12-11 13:17] VITALS: BP 144/82; PULSE 75; RESP 18; TEMP 36.8; O2SAT 95
== END 2023-12-11 14:00 | disposition home or self-care (01) | DRG 399 ==
LOC: ANHED 12:52 → ANHSURGERY 14:00 → ANH3MEDSUR 17:54
PROVIDERS: Emergency Medicine; Admitting Provider Surgery; Emergency Provider Physician Assistant; PCP Family Medicine Adolescent Medicine; Visit Provider Surgery
PROC: 0DTJ4ZZ Resection of Appendix, Percutaneous Endoscopic Approach (ICD-10-PCS; CPT 44970; principal; 2023-12-08 15:45)
DX: K35.201 Acute appendicitis with generalized peritonitis, with perforation, without abscess (principal); I10 Essential (primary) hypertension; K21.9 Gastro-esophageal reflux disease without esophagitis; E78.5 Hyperlipidemia, unspecified; M79.7 Fibromyalgia; F17.290 Nicotine dependence, other tobacco product, uncomplicated; Z96.653 Presence of artificial knee joint, bilateral; Z79.82 Long term (current) use of aspirin; Z95.2 Presence of prosthetic heart valve; Z98.890 Other specified postprocedural states; Z86.79 Personal history of other diseases of the circulatory system
CPT/HCPCS: 36415; 80048; 80053; 83690; 85025; 85027; 85610; 85730; 86850; 86900; 86901; 88304; 96361; 96365; 99285; A9270; J0330; J1100; J1170; J1650; J1741; J2250; J2371; J2405; J2543; J2704; J3010; J7030; J7120

== ENCOUNTER 2025-03-27 14:47 | Outpatient (CLI) | payer MEDICARE, SELFPAY ==
--- NOTE | ~2025-03-27 | CT_ITS ---
CT scan of the Neck Technique: 2.5 mm axial scans were obtained through the neck after intravenous administration of 75 c c Omnipaque 350. Coronal and sagittal reconstructions of the neck were obtained. Dose reduction techn ique was used on this scan by utilizing automated exposure control and iterative reconstruction techn ique. The dose-length product (DLP) was 645.43 mGy-cm. Clinical History: Other disease of tongue Findings: There is no evidence of any significant cervical lymphadenopathy. Several small, nonenlarged jugulo- digastric and posterior cervical lymph nodes are noted bilaterally. Parapharyngeal spaces appear norm al bilaterally. The parotid and submandibular glands appear normal. The pharyngeal mucosal spaces appear normal. No soft tissue masses are seen in the neck. There is a large heterogeneous enhancing left thyroid lobe nodule measuring approximately 4 cm in rakan meter.. Images of the lung apices reveal no abnormalities. Impression: 4 cm heterogeneous left thyroid nodule. Thyroid ultrasound recommended to further characterize. No other significant findings. Reviewed, dictated and finalized at [facility]. Impression: 4 cm heterogeneous left thyroid nodule. Thyroid ultrasound recommended to [facility] characterize. No other significant findings.
--- OUTSIDE RECORDS SUMMARY | 2025-03-27 14:54 | XMS_ITS | Clinical Summary ---
Author Organization [facility] Address [address] [place] [address] Care Team Providers Care Finish Cleaner Name Role Phone Yonis Dunham MD Primary Care Prov ider Allergies Active Allergy Reactions Criticality Noted Date Comments Ciprofloxacin Muscle pain Reaction: Muscular pain, Clarithromycin Muscle pain,Fatigue Low 07/27/2011 Reaction: Muscular pain, Ydxwgvt-Mai-Qyc Reductase Inhibitors Muscle pain Medium 02/29/2012 Medications aspirin (ASPIRIN LOW DOSE) 81 mg tablet take 1 tablet (81MG) by oral route 2 times every day 0 08/14/[address] (NexIUM) 40 mg capsule take 1 capsule (40MG) by oral route every day 0 08/14/2012 Active valACYclovir (VALTREX) 500 mg tablet take 1 tablet (500MG) by oral route daily 0 08/14/2012 Active milnacipran (SAVELLA) 25 mg tablet Take 1 tablet (25 mg total) by mouth 2 (two) times a day. 60 tablet 3 09/09/2017 Active tadalafiL (CIALIS) 5 mg tablet Take 1 tablet (5 mg total) by mouth daily Active metoprolol XL (TOPROL-XL) 25 mg extended release tablet 1/2 tab in the am and 1/2 tab pm 45 tablet 5 04/20/2021 Active losartan (COZAAR) 50 mg tablet 1 tablet (50 mg total) daily 01/11/2024 Active amLODIPine (NORVASC) 5 mg tablet Take 1 tablet (5 mg total) by mouth daily Active Hospital, Clinic, or Other Facility Administered Medication Ordered Dose Route Frequency Start Date End Date Status perflutren protein-a (OPTISON) 3 mL in sodium chloride 0.9% 8 mL syringe 1 - 8 mL IV Once in imaging 02/08/2023 Active Active Problems Problem Noted Date Diagnosed Date Fibrositis 10/04/2013 Overview (12/17/2016): Fibromyalgia History of cardiovascular surgery 08/14/2012 Overview (12/15/2016): Hx of repair of ascending aorta Gastroesophageal reflux disease 08/14/2012 Overview (12/15/2016): GERD (gastroesophageal reflux disease) Benign prostatic hyperplasia 08/14/2012 Overview (12/15/2016): BPH (benign prostatic hyperplasia) Hypertension 08/14/2012 Overview (12/15/2016): HTN (hypertension) Male erectile disorder 08/14/2012 Overview (12/15/2016): Erectile dysfunction Hypercholesterolemia 08/14/2012 Overview (12/17/2016): Hypercholesterolemia History of open heart surgery 08/14/2012 Overview (12/17/2016): H/O aortic valve replacement Encounters Date Type Department Care Team Description 02/07/2025 11:00 AM CDT Office Visit [facility] Cardiology [address] [place] [address] Medical Office Building [address] [place] [address] Jerilyn Bennett NP Primary hypertension (Primary Dx) 02/07/2025 10:02 AM CDT - 02/07/2025 11:59 PM CDT Hospital Encounter [facility] Imaging [address] [address] [place] [address] 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 Discharge Disposition: Discharge to home or self care 02/07/2025 Results Follow-Up [facility] Cardiology [address] [place] [address] Medical Office Building [address] [place] [id number] Ruslan Shirley MD CTA Chest W Contrast from Last 3 Months Immunizations Immunization Administration Dates Next Due Influenza, Quadrivalent, Spl it, Preservative Free, Intradermal 08/03/2016 Influenza, Trivalent, IM (MDV) 05/13/2013,2011 Influenza, Trivalent, Split, Preservative Free, Intradermal 07/15/2015 Surgical History Surgery Date Site/Laterality Comments KNEE ARTHROSCOPY 2008 Arthroscopy knee HERNIA REPAIR 1998 Hernia repair Medical History Medical History Date Comments Hx Other Medical 2007 rotator cuff L shoulder Hx Other Medical 2009 aortic valve re placement and ascengind aorta repai; Comments: previous 1996; repeaqt 2009 Family History Medical History Relation Name Comments Other Brother 3 Alive and well; Other Brother 4 Alive and well; stent Other Daughter 2 Alive and well; Other Mother intestinal obst ruction; Cause of : intestinal obstruction Other Other 2 Family history of age-related infirmities; Cause of : Family history of age-related infirmities Relation Name Status Comments Brother 1 Alive Brother 2 Alive Brother 3 Brother 4 Daughter 1 Alive Daughter 2 Mother (Age 91) Other 1 Alive Other 2 Social History Tobacco Use Types Packs/Day Years Used Date Smoking Tobacco: Former Smokeless Tobacco: Never Tobacco Cessation:Counseling Given: Not Answered Alcohol Use Standard Drinks/Week Comments Yes 0 (1 standard drink = 0.6 oz pur e alcohol) Sex and Gender Information Value Date Recorded Sex Assigned at Not on file Legal Sex Male 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 Gender Identity Male 04/14/2021 7:06 AM CDT Sexual Orientation Straight 04/14/2021 7: 06 AM CDT Obstetrics History Last Filed Vital Signs Vital Sign Reading Time Taken Comments Blood Pressure 114/80 02/07/2025 10:44 AM CDT Pulse 68 02/07/2025 10:44 AM CDT Temperature 36.5 C (97.7 F) 05/16/2018 8:14 AM CDT Respiratory Rate - - Oxygen Saturation 99% 02/07/2025 10:44 AM CDT Inhaled Oxygen Concentration - - Weight 83.6 kg (184 lb 6.4 oz) 02/07/2025 10:44 AM CDT Height 182.9 cm (6') 02/07/2025 10:44 AM CDT Body Mass Index 25.01 02/07/2025 10:44 AM CDT Plan of Treatment Health Maintenance Due Date Last Done Comments Colon Cancer Screening-Colonoscopy 1950 Depression Screening 1950 Fall Risk Assessment 1950 Hepatitis C Screening 1950 Hepatitis B Screening 1970 Pneumococcal vaccine 65+ (1 of 1 - PCV) 2002 Zoster Vaccine (1 of 2) 2002 Abdominal Aortic Aneurysm (A AA) Screen 2017 Well Visit 65+ 2017 Influenza Vaccine (Season Ended) 2025 08/03/2016, 07/15/2015, 05/13/2013, Additional history exists DTaP/Tdap/Td Vaccine (2 - Td or Tdap) 11/17/2030 11/17/2020 Procedures Procedure Name Priority Date/Time Associated Diagnosis Comments CTA CHEST W CONTRAST Schedule Routine, Read Routine (OP Routine) 02/07/2025 10:14 AM CDT 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 Unchanged postsurgical findings of bioprosthetic aortic valve and aortic root replacement with unchanged caliber of the thoracic aorta. 2. New mixed solid and groundglass 6 mm left lower lobe pulmonary nodule with interval resolution of 4 mm right lower lobe pulmonary nodule from 2021. Recommend follow up of the Incidental lung nodule Additional Imaging In [address] chest. 3. Patulous and mildly dilated distal esophagus, which is fluid-filled and places the patient at risk for aspiration. Unchanged small hiatal hernia with multiple enlarged paraesophageal lymph nodes, likely reactive in setting of reflux. Electronically signed by: Virginie Packer M.D. Narrative 02/07/2025 11:02 AM CDT EXAMINATION: CTA CHEST W CONTRAST HISTORY: 74-year-old with history of prosthetic aortic valve and aortic root replacement in 2009. TECHNIQUE: Transaxial computed tomographic images of the chest were obtained with intravenous contrast according to the dissection protocol after the uneventful administration of 100 mL Opti-Ray 350 intravenous contrast. Vascular 3D images were generated on a dedicated workstation and also reviewed. COMPARISON: CT 08/10/2020 mn, 06/01/2021, 09/14/2010 FINDINGS: Vascular findings: Postsurgical changes of median sternotomy and bioprosthetic aortic valve replacement and aortic root replacement. Aortic root: 32 x 31 mm, unchanged Sinotubular junction: 30 x 27 mm, unchanged when measured in similar fashion. Maximum ascending thoracic aorta: 39 x 37 mm, unchanged when measured in similar fashion. Maximum descending thoracic aorta: 28 x 27 mm, unchanged. Conventional three-vessel arch. The heart size is normal without pericardial effusion. Mild calcified coronary artery atherosclerosis. Nonvascular findings: Calcified granulomas. New mixed solid and groundglass 6 number left lower lobe pulmonary nodule (series 6, image 96). A previously seen 4 mm right lower lobe pulmonary nodule has resolved. The trachea and central airways are clear. Unchanged large left thyroid goiter. Hypoattenuating right thyroid nodule is also unchanged. No mediastinal or hilar lymphadenopathy. There is a patulous and mildly dilated distal esophagus which is filled with debris and fluid, which places the patient risk for aspiration. There are multiple prominent paraesophageal lymph nodes measuring up to 1 cm there are unchanged and may be seen in setting of reflux (series 4, image 229). There is a small hiatal hernia. Mild gynecomastia. There is atrophy of the left lateral section with subtle hepatic surface nodularity and mild caudate hypertrophy, which could be seen in setting of hepatic fibrosis. There is a small hypoattenuating hepatic segment 5 lesion is too small to characterize and unchanged. Place left hepatic artery from left gastric artery. Median sternotomy. No acute fracture or suspicious osseous lesion. Multiple Schmorl's nodes. Procedure Note Virginie Packer MD - 02/07/2025 EXAMINATION: CTA CHEST W CONTRAST HISTORY: 74-year-old with history of prosthetic aortic valve and aortic root replacement in 2009. TECHNIQUE: Transaxial computed tomographic images of the chest were obtained with intravenous contrast according to the dissection protocol after the uneventful administration of 100 mL Opti-Ray 350 intravenous contrast. Vascular 3D images were generated on a dedicated workstation and also reviewed. COMPARISON: CT 08/10/2020 oh, 06/01/2021, 09/14/2010 FINDINGS: Vascular findings: Postsurgical changes of median sternotomy and bioprosthetic aortic valve replacement and aortic root replacement. Aortic root: 32 x 31 mm, unchanged Sinotubular junction: 30 x 27 mm, unchanged when measured in similar fashion. Maximum ascending thoracic aorta: 39 x 37 mm, unchanged when measured in similar fashion. Maximum descending thoracic aorta: 28 x 27 mm, unchanged. Conventional three-vessel arch. The heart size is normal without pericardial effusion. Mild calcified coronary artery atherosclerosis. Nonvascular findings: Calcified granulomas. New mixed solid and groundglass 6 number left lower lobe pulmonary nodule (series 6, image 96). A previously seen 4 mm right lower lobe pulmonary nodule has resolved. The trachea and central airways are clear. Unchanged large left thyroid goiter. Hypoattenuating right thyroid nodule is also unchanged. No mediastinal or hilar lymphadenopathy. There is a patulous and mildly dilated distal esophagus which is filled with debris and fluid, which places the patient risk for aspiration. There are multiple prominent paraesophageal lymph nodes measuring up to 1 cm there are unchanged and may be seen in setting of reflux (series 4, image 229). There is a small hiatal hernia. Mild gynecomastia. There is atrophy of the left lateral section with subtle hepatic surface nodularity and mild caudate hypertrophy, which could be seen in setting of hepatic fibrosis. There is a small hypoattenuating hepatic segment 5 lesion is too small to characterize and unchanged. Place left hepatic artery from left gastric artery. Median sternotomy. No acute fracture or suspicious osseous lesion. Multiple Schmorl's nodes. IMPRESSION: 1. Unchanged postsurgical findings of bioprosthetic aortic valve and aortic root replacement with unchanged caliber of the thoracic aorta. 2. New mixed solid and groundglass 6 mm left lower lobe pulmonary nodule with interval resolution of 4 mm right lower lobe pulmonary nodule from 2021. Recommend follow up of the Incidental lung nodule Additional Imaging In [address] chest. 3. Patulous and mildly dilated distal esophagus, which is fluid-filled and places the patient at risk for aspiration. Unchanged small hiatal hernia with multiple enlarged paraesophageal lymph nodes, likely reactive in setting of reflux. Electronically signed by: Virginie Packer M.D. Ruslan Shirley MD IMG CT PROCEDURES Final Re sult * POC ISTAT (02/07/2025 10:08 AM CDT) Creatinine, POC, bld 1.3 0.6 - 1.3 mg/dL POC Device Number [id number] [facility] POC Performer [id number] [facility] Blood 02/07/2025 10:0 8 AM CDT 02/07/2025 10:08 AM CDT Yonis Dunham MD LAB BLOOD ORDERABL ES Final Result [facility] [id number] [facility]. [place] [address] from Last 3 Months Insurance MEDICARE [employer] SENIOR SUPPLEMENT [place] ACCESS MEDICARE [place] [employer] [place] [facility] ACCESS CHOICE MEDICARE MEDICARE [employer] SENIOR SUPPLEMENT MEDICARE [employer] SENIOR SUPPLEMENT Care Teams Finish Cleaner Relationship Specialty Start Date End Date Yonis Dunham MD [address] [place] [address] PCP - General 11/22/17
--- OUTSIDE RECORDS SUMMARY | 2025-03-27 14:54 | XMS_ITS | Encounter Summary ---
Author Organization [facility] Address [address] [place] [address] Care Team Providers Care Rfid Engineer Name Role Phone Yonis Dunham MD Primary Care Provider + Encounter Details Date Type Department Care Team (Late st Contact Info) Description 07/21/2022 Lab Requisition [facility] [address] [place] [address] [place] [address] Social History Tobacco Use Types Packs/Day Years Used Date Smoking Tobacco: Never Assessed Sex and Gender Information Value Date Recorded Sex Assigned at Not on file Legal Sex Male 6:58 PM INTELLIGENT SYSTEMS ENGINEER Gender Identity Not on file Sexual Orientation Not on file documented as of this encounter Plan of Treatment Not on file documented as of this encounter Procedures Procedure Name Priority Date/Time Associated Diagnosis Comments DERMATOPATHOLOGY Routine 07/20/2022 12:0 0 AM INTELLIGENT SYSTEMS ENGINEER documented in this encounter Results * DERMATOPATHOLOGY (07/20/2022 12:00 AM INTELLIGENT SYSTEMS ENGINEER) Case Report Dermatopathology Report Case: [id number] Authorizing Provider: Andrew Butterfield MD Collected: 07/20/2022 12:00 AM Ordering Location: [facility] Received: 07/21/2022 01:06 PM Pathologist: Susannah Flynn MD Specimens: A) - Skin, left lat forehead above brow B) - Skin, left mid cheek C) - Skin, left side nose 2:10 PM INTELLIGENT SYSTEMS ENGINEER DERMATOPATHOLOGY LABORATORY Final Diagnosis Specimen A. SKIN, left lat forehead above brow: HYPERPLASTIC (HYPERTROPHIC) ACTINIC KERATOSIS; EXTENDING TO THE BASE OF THE SPECIMEN (L57.0) (see microscopic description and comment) Specimen B. SKIN, left mid cheek: SQUAMOUS CELL CARCINOMA IN SITU, PRESENT AT THE BASE OF THE SPECIMEN (D04.39) (see microscopic description and comment) Specimen C. SKIN, left side nose: BASAL CELL CARCINOMA, NODULAR TYPE (C44.311) 2 2:10 PM [facility] DERMATOPATHOLOGY LABORATORY at [address] INTELLIGENT SYSTEMS ENGINEER Clinical History A-C: R/O BCC, HAK, SCCIS 2 2:10 PM [facility] DERMATOPATHOLOGY LABORATORY Gross Description Specimen A: Received is one formalin filled container labeled with the patient's name and designated left lat forehead above brow. The specimen consists of a shave biopsy measuring [id number]. Jar 0. Specimen B: Received is one formalin filled container labeled with the patient's name and designated left mid cheek. The specimen consists of a shave biopsy measuring [id number]. Jar 0. Specimen C: Received is one formalin filled container labeled with the patient's name and designated left side nose. The specimen consists of a shave biopsy measuring [id number]. Jar 0. 2 2:10 PM [facility] DERMATOPATHOLOGY [facility]ORATORY Microscopic Description Specimen A. SKIN, left lat forehead above brow: There is hyperkeratosis alternating with parakeratosis. There is epidermal hyperplasia with disorderly maturation of keratinocytes with nuclear pleomorphism confined to the lower half of the epidermis. This process extends to the base of the specimen. COMMENT: A squamous cell carcinoma cannot be ruled out. Specimen B. SKIN, left mid cheek: The epidermis shows parakeratosis, full thickness disorderly maturation of keratinocytes, mitoses at different levels, and dyskeratotic cells. The lesion extends to the base of the biopsy. COMMENT: An invasive squamous cell carcinoma cannot be ruled out. Specimen C. SKIN, left side nose: Within the dermis there are aggregates of basaloid cells with a high nuclear to cytoplasmic ratio and peripheral palisading. 2 2:10 PM [facility] DERMATOPATHOLOGY LABORATORY Disclaimer An external and internal positive and negative controls are appropriate for the histochemical, immunohistochemical and immunofluorescence stain(s) in this case (if any), except where stated explicitly. The performance characteristics of the stain(s) cited in this report were developed and its performance characteristic determined by the Dermatopathology Laboratory at [facility], directed by Dr. Silvino Murphy. These tests need not be, and therefore are not, approved by the [place] Food and Drug Administration. The tests are used for clinical purposes. Billing Codes Specimen Charges Stain Charges 34604 [id number] 63470 1 1 1 2 2:10 PM INTELLIGENT SYSTEMS ENGINEER DERMATOPATHOLOGY LABORATORY Embedded Images 2 2:10 PM INTELLIGENT SYSTEMS ENGINEER DERMATOPATHOLOGY LABORATORY Pathology/Cytology TISSUE SPECIMEN FROM SKIN / Unknown 07/20/2022 07/21/2022 1:06 PM INTELLIGENT SYSTEMS ENGINEER Miscellaneous samples (specimen) TISSUE SPECIMEN FROM SKIN / Unknown 07/20/2022 07/21/2022 1:06 PM INTELLIGENT SYSTEMS ENGINEER Miscellaneous samples (specimen) TISSUE SPECIMEN FROM SKIN / Unknown 07/20/2022 07/21/2022 1:06 PM INTELLIGENT SYSTEMS ENGINEER Andrew Butterfield MD LAB - PATHOLOGY/CYTOLOGY ORD ERABLES Final Result DERMATOPATHOLOGY LABORATORY [facility] - Department of Dermatology [facility] Medicine [address] [place] [address], [address] [phone] documented in this encounter Visit Diagnoses Not on filedocumented in this encounter Care Teams Rfid Engineer Relationship Specialty Start Date End Date Yonis Dunham MD [address] [address] PCP - General 12/23/09 documented as of this encounter
--- OUTSIDE RECORDS SUMMARY | 2025-03-27 14:54 | XMS_ITS | Encounter Summary ---
Author Organization [facility] [employer] [facility] Address [address] [place] [address] Phone Care Team Providers Care Product Applications Engineer Name Role Phone Yonis Dunham MD Primary Care Prov ider Encounter Details Date Type Department Care Team (Late st Contact Info) Description 02/07/2025 Results Follow-Up [facility] Cardiology [address] [facility] Medical Office Building [address] [place] [address] Ruslan Shirley MD [address] [facility] [address] [place] [address] CTA Chest W Contrast Social History Tobacco Use Types Packs/Day Years Used Date Smoking Tobacco: Former Smokeless Tobacco: Never Alcohol Use Standard Drinks/Week Comments Yes 0 (1 standard drink = 0.6 oz pur e alcohol) Sex and Gender Information Value Date Recorded Sex Assigned at Not on file Legal Sex Male 2:28 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
--- OUTSIDE RECORDS SUMMARY | 2025-03-27 14:54 | XMS_ITS | Encounter Summary ---
Author Organization [facility] Address [address] [place] [address] Care Team Providers Care Self Rising Flour Mixer Name Role Phone Yonis Dunham MD Primary Care Provider + Encounter Details Date Type Department Care Team (Late st Contact Info) Description 02/14/2019 Lab Requisition [facility] Care DermPath Lab [address] [place] [address] Andrew Butterfield MD [address] [place] [address] Social History Tobacco Use Types Packs/Day Years Used Date Smoking Tobacco: Never Assessed Sex and Gender Information Value Date Recorded Sex Assigned at Not on file 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 Gender Identity Not on file Sexual Orientation Not on file documented as of this encounter Plan of Treatment Not on file documented as of this encounter Procedures Procedure Name Priority Date/Time Associated Diagnosis Comments DERMATOPATHOLOGY Routine 02/13/2019 12:0 0 AM CDT documented in this encounter Results * DERMATOPATHOLOGY (02/13/2019 12:00 AM CDT) Case Report Dermatopathology Report Case: [id number] Authorizing Provider: Andrew Butterfield MD Collected: 02/13/2019 12:00 AM Pathologist: Katerine Murphy MD Received: 02/14/2019 12:08 PM Specimen: Skin, left superior forehead 9 4:05 PM CDT DERMATOPATHOLOGY LABORATORY Final Diagnosis Specimen A. SKIN, left superior forehead: SOLAR LENTIGO (L81.4) 9 4:05 PM CDT DERMATOPATHOLOGY LABORATORY at 1605 CDT Clinical History R/O lentigo. 9 4:05 PM CDT DERMATOPATHOLOGY LABORATORY Gross Description Specimen A: Received is one formalin filled container labeled with the patient's name and designated left superior forehead. The specimen consists of a shave biopsy (2 pieces) measuring 4o7b0sm & 9m3v4jz. Jar 0. 9 4:05 PM CDT DERMATOPATHOLOGY LABORATORY Microscopic Description Specimen A. SKIN, left superior forehead: There is orthokeratosis. There is a slight increase in epidermal thickness with lentiginous buds of hyperpigmented keratinocytes. The number of melanocytes is only mildly increased. In the dermis, there is basophilic degeneration of elastic fibers. 9 4:05 PM CDT DERMATOPATHOLOGY LABORATORY Disclaimer An external and internal positive and negative controls are appropriate for the histochemical, immunohistochemical and immunofluorescence stain(s) in this case (if any), except where stated explicitly. The performance characteristics of the stain(s) cited in this report were developed and its performance characteristic determined by the Dermatopathology Laboratory at [facility], directed by Dr. Silvino Murphy. These tests need not be, and therefore are not, approved by the [place] Food and Drug Administration. The tests are used for clinical purposes. Billing Codes Specimen Charges Stain Charges 40071 1 9 4:05 PM CDT DERMATOPATHOLOGY LABORATORY Embedded Images 9 4:05 PM CDT DERMATOPATHOLOGY LABORATORY Pathology/Cytolog y TISSUE SPECIMEN FROM SKIN / Unknown 02/13/2019 02/14/2019 12:08 PM CDT us Andrew Butterfield MD LAB - PATHOLOGY/CYTOLOGY ORD ERABLES Final Result DERMATOPATHOLOGY LABORATORY [facility] - Department of Dermatology [address], [address]th [place] [address], [facility] [phone] documented in this encounter Visit Diagnoses Not on filedocumented in this encounter Care Teams Self Rising Flour Mixer Relationship Specialty Start Date End Date Yonis Dunham MD [address] [address] PCP - General 12/23/09 documented as of this encounter
--- OUTSIDE RECORDS SUMMARY | 2025-03-27 14:54 | XMS_ITS | Encounter Summary ---
Author Organization [facility] Address [address] [place] [address] Care Team Providers Care Certified Nursing Attendant Name Role Phone Yonis Dunham MD Primary Care Provider + Encounter Details Date Type Department Care Team (Late st Contact Info) Description 08/04/2022 Lab Requisition [facility] D[facility] Lab [address] [place] [address] Andrew [place] [address] Social History Tobacco Use Types Packs/Day Years Used Date Smoking Tobacco: Never Assessed Sex and Gender Information Value Date Recorded Sex Assigned at Not on file 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 Gender Identity Not on file Sexual Orientation Not on file documented as of this encounter Plan of Treatment Not on file documented as of this encounter Procedures Procedure Name Priority Date/Time Associated Diagnosis Comments DERMATOPATHOLOGY Routine 08/03/2022 12:0 0 AM SEED AND FERTILIZER SPECIALIST documented in this encounter Results * DERMATOPATHOLOGY (08/03/2022 12:00 AM SEED AND FERTILIZER SPECIALIST) Case Report Dermatopathology Report Case: [id number] Authorizing Provider: Andrew Butterfield MD Collected: 08/03/2022 12:00 AM Ordering Location: [facility] Received: 08/04/2022 01:56 PM Pathologist: Lisa Espinal MD Specimens: A) - Skin, right wrist B) - Skin, left lateral chest 4:30 PM SEED AND FERTILIZER SPECIALIST DERMATOPATHOLOGY LABORATORY Final Diagnosis Specimen A. 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 SKIN, left lateral chest: SQUAMOUS CELL CARCINOMA IN SITU, PRESENT AT THE BASE OF THE SPECIMEN (D04.5) (see microscopic description and comment) 2 4:[address] [facility] DERMATOPATHOLOGY LABORATORY at 1630 SEED AND FERTILIZER SPECIALIST Clinical History A-B: R/O BCC, HAK, SCCIS 2 4:[address] [facility] DERMATOPATHOLOGY LABORATORY Gross Description Specimen A: Received is one formalin filled container labeled with the patient's name and designated right wrist. The specimen consists of a shave biopsy measuring 5k2v4ef. Jar 0. Specimen B: Received is one formalin filled container labeled with the patient's name and designated left lateral chest. The specimen consists of a shave biopsy measuring 2i7s3af. Jar 0. 4:[address] [facility] DERMATOPATHOLOGY LABORATORY Microscopic Description Specimen A. SKIN, right wrist: Sections reveal parakeratosis, acanthosis and keratinocyte dysmaturation which is most prominent in the lower epidermis but focally extends through the entire epidermis. Specimen B. SKIN, left lateral chest: The epidermis shows parakeratosis, full thickness disorderly maturation of keratinocytes, mitoses at different levels, and dyskeratotic cells. The lesion extends to the base of the biopsy. COMMENT: An invasive squamous cell carcinoma cannot be ruled out. 4:[address] [facility] DERMATOPATHOLOGY LABORATORY Disclaimer An external and internal positive and negative controls are appropriate for the histochemical, immunohistochemical and immunofluorescence stain(s) in this case (if any), except where stated explicitly. The performance characteristics of the stain(s) cited in this report were developed and its performance characteristic determined by the Dermatopathology Laboratory at [facility], directed by Dr. Silvino Murphy. These tests need not be, and therefore are not, approved by the [place] Food and Drug Administration. The tests are used for clinical purposes. Billing Codes Specimen Charges Stain Charges 85597 70994 1 1 2 4:[address] [facility] DERMATOPATHOLOGY LABORATORY Embedded Images 2 4:[address] [facility] DERMATOPATHOLOGY LABORATORY Pathology/Cytology TISSUE SPECIMEN FROM SKIN / Unknown 08/03/2022 08/04/2022 1:56 PM SEED AND FERTILIZER SPECIALIST Miscellaneous samples (specimen) TISSUE SPECIMEN FROM SKIN / Unknown 08/03/2022 08/04/2022 1:56 PM SEED AND FERTILIZER SPECIALIST Andrew Butterfield MD LAB - PATHOLOGY/CYTOLOGY ORD ERABLES Final Result DERMATOPATHOLOGY LABORATORY [facility] - Department of Dermatology [facility] [address] [place] [address], [address] [phone] documented in this encounter Visit Diagnoses Not on filedocumented in this encounter Care Teams Certified Nursing Attendant Relationship Specialty Start Date End Date Yonis Dunham MD [address] [address] PCP - General 12/23/09 documented as of this encounter
--- OUTSIDE RECORDS SUMMARY | 2025-03-27 14:54 | XMS_ITS | Encounter Summary ---
Author Organization [facility] Address [address] [place] [address] Phone Care Team Providers Care Travel Registered Nurse Oncology Name Role Phone Yonis Dunham MD Primary Care Prov ider Encounter Details Date Type Department Care Team (Latest Contact Info) Description 06/08/2019 Orders Only [facility] Scanning, Provider Social History Tobacco Use Types Packs/Day Years Used Date Smoking Tobacco: Former Smokeless Tobacco: Never Alcohol Use Standard Drinks/Week Comments Yes 0 (1 standard drink = 0.6 oz pur e alcohol) Sex and Gender Information Value Date Recorded Sex Assigned at Not on file 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 Gender Identity Male 04/14/2021 7:06 AM CDT Sexual Orientation Straight 04/14/2021 7: 06 AM CDT documented as of this encounter Plan of Treatment Not on file documented as of this encounter Procedures Procedure Name Priority Date/Time Associated Diagnosis Comments SCAN - LABS 06/08/2019 documented in this encounter Results * SCAN - LABS (06/08/2019) us Provider Scanning Final Result documented in this encounter Visit Diagnoses Not on filedocumented in this encounter Care Teams Travel Registered Nurse Oncology Relationship Specialty Start Date End Date Yonis Dunham MD [address] [place] [address] PCP - General 11/22/17 documented as of this encounter
--- OUTSIDE RECORDS SUMMARY | 2025-03-27 14:54 | XMS_ITS | Clinical Summary ---
Author Organization [facility] Address [address] [facility] [place] [address] Care Team Providers Care Maintenance Department Manager Name Role Phone Yonis Dunham MD Primary Care Provider + Source Comments [facility],non-owned Affiliates and Associated Physician Practices is amultiple site organization consisting of ambulatory clinics and hospital sitesin [place], [place], [place] and [place]. This disclosure is being madepursuant to the Care Everywhere program and may not contain all information available regarding this patient. 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 Gender Identity Not on file Sexual Orientation Not on file Plan of Treatment Health Maintenance Due Date Last Done Comments COLOGUARD (AGES 45-75) - COL ON CA SCREENING 1952 COLON MONITORING 1952 COLONOSCOPY - COLON CA SCREENING 1952 CT COLONOGRAPHY - COLON CA SCREENING 1952 Colorectal Cancer Screening 1952 FIT - COLON CA SCREENING 1952 FLEX SIG - COLON CA SCREENING 1952 LIPID TESTING 1952 MEDICARE AWV 12 MONTHS 1952 HEPATITIS C SCREENING 11/16/1970 DTAP/TDAP/TD VACCINES (1 - Tdap) 11/21/1971 PNEUMOCOCCAL VACCINE 50+ (1 of 1 - PCV) 2002 ZOSTER VACCINE (1 of 2) 2002 COVID-19 VACCINE (1 - 2023-2 5 season) 2024 DEPRESSION SCREENING 09/12/2024 INFLUENZA VACCINE (#1) 2025 Respiratory Syncytial Virus (RSV) Vaccine Pt: or over 60 yrs (1 - 1-dose 75+ series) 11/21/2027 HEPATITIS B VACCINE Aged Out No longe r eligible based on patient's age to complete this topic HIB VACCINE Aged Out No longer eligi ble based on patient's age to complete this topic HPV VACCINE Aged Out No longer eligi ble based on patient's age to complete this topic MENINGOCOCCAL (Group B) VACC INE SHARED DECISION-MAKING Aged Out No longer eligibl e based on patient's age to complete this topic MENINGOCOCCAL GROUPS A/C/Y/W VACCINE Aged Out No longer eligible b ased on patient's age to complete this topic Insurance MEDICARE MEDICARE AETNA MEDICARE AETNA MEDICARE AETNA Care Teams Maintenance Department Manager Relationship Specialty Start Date End Date Yonis Dunham MD [address] [address] PCP - General 12/23/09
--- OUTSIDE RECORDS SUMMARY | 2025-03-27 14:54 | XMS_ITS | Referral Summary ---
Author Organization [facility] Address [address] [place] [address] Care Team Providers Care Surveyor Mine Name Role Phone Yonis Dunham MD Primary Care Prov ider Encounters Date Type Department Care Team Description 02/07/2025 Results Follow-Up [facility] Cardiology [address] [place] [address] Medical Office Building [address] [place] [address] Ruslan Shirley MD CTA Chest W Contrast 02/07/2025 11:00 AM CDT Office Visit [facility] Cardiology [address] [place] [address] Office [address] [place] [phone] Jerilyn Bennett NP Primary hypertension (Primary Dx) 02/07/2025 10:02 AM CDT - 02/07/2025 11:59 PM CDT Hospital Encounter [facility] [address] [place] [address] 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 Discharge Disposition: Discharge to home or self care from Last 3 Months Allergies Active Allergy Reactions Criticality Noted Date Comments Ciprofloxacin Muscle pain Reaction: Muscular pain, Clarithromycin Muscle pain,Fatigue Low 07/27/2011 Reaction: Muscular pain, Dvxlfxm-Ggr-Tqx Reductase Inhibitors Muscle pain Medium 02/29/2012 Medications [...] 08/14/2012 Overview (12/17/2016): H/O aortic valve replacement Immunizations Immunization Administration Dates Next Due Influenza, Quadrivalent, Spl it, Preservative Free, Intradermal 08/03/2016 Influenza, Trivalent, IM (MDV) 05/13/2013,2011 Influenza, Trivalent, Split, Preservative Free, Intradermal 07/15/2015 Social History Tobacco Use Types Packs/Day Years Used Date Smoking Tobacco: Former Smokeless Tobacco: Never Tobacco Cessation:Counseling Given: Not Answered Alcohol Use Standard Drinks/Week Comments Yes 0 (1 standard drink = 0.6 oz pur e alcohol) Sex and Gender Information Value Date Recorded Sex Assigned at Not on file 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 Electronically signed by: Virginie Pcaker M.D. Narrative 02/07/2025 11:02 AM CDT EXAMINATION: [...] workstation and also reviewed. COMPARISON: CT 08/10/2020 sd, 06/01/2021, 09/14/2010 FINDINGS: Vascular findings: Postsurgical changes [...] 0.6 - 1.3 mg/dL POC Device Number [id number] [facility] Performer [id number] KURT RYDER Blood 02/07/2025 10:0 8 AM CDT 02/07/2025 10:08 AM CDT Yonis Dunham MD LAB BLOOD ORDERABL ES Final Result [facility] [id number] [facility]. Department [place] [address] from Last 3 Months Insurance MEDICARE AETNA SENIOR SUPPLEMENT [facility] MEDICARE [facility] ACCESS CHOICE MEDICARE MEDICARE AETNA SENIOR SUPPLEMENT MEDICARE AETNA SENIOR SUPPLEMENT Care Teams Surveyor Mine Relationship Specialty Start Date End Date Yonis Dunham MD [address] [place] [address] PCP - General 11/22/17
--- OUTSIDE RECORDS SUMMARY | 2025-03-27 14:54 | XMS_ITS | Encounter Summary ---
Author Organization [facility] Address [address] [facility] [place] [address] Care Team Providers Care Silviculture Teacher Name Role Phone Yonis Dunham MD Primary Care Provider + Encounter Details Date Type Department Care Team (Late st Contact Info) Description 08/03/2024 Lab Requisition [facility] - DermPath Lab [address] [facility] [place] [address] Andrew Butterfield MD [address] [place] [address] Social History Tobacco Use Types Packs/Day Years Used Date Smoking Tobacco: Never Assessed Sex and Gender Information Value Date Recorded Sex Assigned at Not on file 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 Gender Identity Not on file Sexual Orientation Not on file documented as of this encounter Plan of Treatment Not on file documented as of this encounter Procedures Procedure Name Priority Date/Time Associated Diagnosis Comments DERMATOPATHOLOGY Routine 08/01/2024 12:0 0 AM GASKET SUPERVISOR documented in this encounter Results * DERMATOPATHOLOGY (08/01/2024 12:00 AM GASKET SUPERVISOR) Case Report Dermatopathology Report Case: [id number] Authorizing Provider: Andrew Butterfield MD Collected: 08/01/2024 12:00 AM Ordering Location: [facility] - Received: 08/03/2024 01:57 PM DermPath Lab Pathologist: Susannah Flynn MD Specimen: Skin, right paraspinal upper back 12:35 PM GASKET SUPERVISOR DERMATOPATHOLOGY LABORATORY Final Diagnosis Specimen A. SKIN, right paraspinal upper back: BASAL CELL CARCINOMA, NODULAR TYPE (C44.519) NOT PRESENT AT SAMPLED MARGIN 12:35 PM [facility] DERMATOPATHOLOGY LABORATORY at 1235 GASKET SUPERVISOR Clinical History R/O SBCC. Check margins 12:35 PM [facility] DERMATOPATHOLOGY LABORATORY Gross Description Specimen A: Received is one formalin filled container labeled with the patients name and designated right paraspinal upper back. The specimen consists of a shave removal measuring 58r44v4 mm. Jar 0. 12:35 PM [facility] DERMATOPATHOLOGY LABORATORY Microscopic Description Specimen A. SKIN, right paraspinal upper back: Within the dermis there are aggregates of basaloid cells with a high nuclear to cytoplasmic ratio and peripheral palisading. This lesion is not present at the sampled margin of the specimen. 12:35 PM [facility] DERMATOPATHOLOGY LABORATORY Disclaimer An external and internal positive and negative controls are appropriate for the histochemical, immunohistochemical and immunofluorescence stain(s) in this case (if any), except where stated explicitly. The performance characteristics of the stain(s) cited in this report were developed and its performance characteristic determined by the Dermatopathology Laboratory at [facility], directed by Dr. Silvino Murphy. These tests need not be, and therefore are not, approved by the [place] Food and Drug Administration. The tests are used for clinical purposes. Billing Codes Specimen Charges Stain Charges 36794 1 12:35 PM [facility] DERMATOPATHOLOGY LABORATORY Embedded Images 12:35 PM [facility] DERMATOPATHOLOGY LABORATORY Pathology/Cytolog y TISSUE SPECIMEN FROM SKIN / Unknown 08/01/2024 08/03/2024 1:57 PM [facility] us Andrew Butterfield MD LAB - PATHOLOGY/CYTOLOGY ORD ERABLES Final Result DERMATOPATHOLOGY LABORATORY [facility] - Department of Dermatology [address] [place] [address], [facility] [phone] documented in this encounter Visit Diagnoses Not on filedocumented in this encounter Care Teams Silviculture Teacher Relationship Specialty Start Date End Date Yonis Dunham MD [address] [address] PCP - General 12/23/09 documented as of this encounter
[2025-03-27 15:20] LABS: Estimated Glomerular Filt Rate 50
== END 2025-03-27 14:48 | disposition home or self-care (01) ==
PROVIDERS: PCP Family Medicine Adolescent Medicine; Visit Provider Otolaryngology
DX: E04.1 Nontoxic single thyroid nodule (principal); K14.8 Other diseases of tongue; K14.3 Hypertrophy of tongue papillae; K13.3 Hairy leukoplakia
CPT/HCPCS: 70491; Q9967